=== PATIENT | female | born 1945 | race Caucasian/White ===

== ENCOUNTER 2016-07-11 02:15 | Inpatient (IN) | payer OTHER, MEDICARE ==
[~2016-07-11] VITALS: Ht 154.9 cm; Wt 63.5 kg
[~2016-07-11 02:15] MED LIST: DICLOFENAC SODI50 M3 PO; GABAPENTIN100 M2 PO; OMEPRAZOLE40 M1 PO; PERCOCET 7.5-31 EACH PO; QUINAPRIL
[2016-07-11 08:14] LABS: ABSOLUTE BASOPHIL COUNT 0 /CUMM (0.0-0.2); ABSOLUTE EOSINOPHIL COUNT 0.1 /CUMM (0.0-0.7); ABSOLUTE GRANULOCYTE CT 4.7 /CUMM (1.4-6.5); ABSOLUTE LYMPH COUNT 2.2 /CUMM (1.2-3.4); ABSOLUTE MONOCYTE COUNT 0.6 /CUMM (0.10-0.60); BASOPHIL % 0.3 % (0.0-2.0); EOSINOPHIL % 1.9 % (0-5); GRANULOCYTE % 61.5 % (42.2-75.2); HEMATOCRIT 37.1 % (37-47); MEAN CORPUSCULAR HGB CONC 32.8 G/DL (33.0-37.0); MEAN CORPUSCULAR VOLUME 85.4 FL (81.0-99.0); MEAN PLATELET VOLUME 6.6 FL (7.4-10.4); PLATELET COUNT 342 /CUMM (130-400); RBC DISTRIBUTION WIDTH 14.4 % (11.5-14.5); RED BLOOD CELL CT 4.35 /CUMM (4.20-5.40); WHITE BLOOD CELL COUNT 7.7 /CUMM (4.8-10.8)
--- NOTE | 2016-07-11 12:06 | Operative Report ---
Operative/Inv Procedure Report Surgery Date: 07/11/16 Name of Procedure: Laparoscopic converted to open incarcerated incisional hernia repair Small bowel resection Pre-Operative Diagnosis: Incarcerated incisional hernia Post-Operative Diagnosis: Same Estimated Blood Loss: scant Surgeon/Emergency Department Aide: KATELYNN WRIGHT,GEOVANNA Menendez/DARSHAN Mcmahon Anesthesia: general endotracheal tube Implants: None Specimens: Small bowel Operative Indication: 70-year-old woman presents with a chronically incarcerated port site hernia in the left lower quadrant related to prior laparoscopic port site from hysterectomy performed in December 2015. Operative/Procedure Note Note: After consent she is brought to the operating room and laid supine. Gen. anesthesia was obtained and her abdomen was prepped and draped. There was incarcerated left lower quadrant abdominal wall hernia. It is reducible after induction of general anesthesia. Skin and right upper quadrant was infiltrated local anesthesia transverse incision made sharply. We gained access to the peritoneum percutaneously using an optical 12 mm trocar. Pneumoperitoneum was achieved. 2, 5 mm ports were placed in the right lower quadrant after local anesthesia was instilled and under direct vision the camera. Despite the reducible nature of her hernia contents remained incarcerated because the small bowel was stuck into the hernia sac. We dissected the orifice of the defect. There are multiple small bowel loops that were plastered up to the sac. There densely adherent to the sac thus making the dissection quite difficult. We tried multiple different angles dissecting it. In the end it was impossible to deliver the small bowel without causing injury to it. At this point I felt that making a small incision over the defect to reduce the contents and then placed laparoscopic mesh would be a better approach. So we made a small incision over the left lower quadrant defect site. Dissected through the subcutaneous tissues tissues with cautery. Encountered the hernia sac which was then circumferentially dissected down the level of the fascia with cautery. We then able to dissect the sac free from the surrounding fascial layers. The dissection was quite difficult due to the size of the hernia sac. Eventually we able to free it up circumferentially and then opened the sac and inspected the small bowel. It appeared that during our dissection of the small bowel a bucket handle injury to this segment of mesentery along the bowel wall was created. This resulted in a small area of ischemia of the small bowel. I was concerned about the viability of this bowel and elected to resect it. Mesenteric windows were created cautery and the bowel transected with the CHAYITO stapler. The bowel was then lined up side to side with 3-0 silk sutures and the staple lines were opened to allow a [id number] anastomosis. The common enterotomy was closed with a reload of the stapler. A stitch in the crotch of the staple line was created with 3-0 silk. The bowel was then replaced in the perineal cavity. Due to the contaminated nature of the case I felt that maybe a piece of biologic mesh to be placed. I did not do an onlay so we thought may be we could place it laparoscopically. There were 2 layers of fascia we identified and attempted to create planes in between them so that we could put the mesh in between the layers in a sandwich type fashion. But the external oblique was fused medially such that that plan wouldn't work. So I elected to repair the site with primary closure. The deeper 2 layers of fascia were closed with interrupted 0 Maxon suture. The external oblique was closed in a running fashion with 0 Maxon. We then went back laparoscopic. Plan was to be due to placed some biologic mesh but the closure looked perfect, her abdominal wall was lax and Strati\paige mesh would not accommodate use of the absorbable tackers. Permanent mesh would not be garcia given the clean contaminated nature of the case. Therefore elected to not place mesh at all due to the excellent closure that was able to be performed. We therefore concluded the operation and removed the ports. The fascia in the right upper quadrant was closed with interrupted 0 Vicryl sutures. Skin incisions closed in layers of absorbable sutures. Steri-Strips and sterile dressing applied. Sponge and needle counts are correct CC: STEPHANIE WRIGHT,CAMILO Coughlin
--- NOTE | 2016-07-11 13:40 | Admission Core Measures ---
Admission Lab Results I reviewed the following labs: Laboratory Tests 07/11 0730 Chemistry Sodium (137 - 145 mmol/L) 145 Potassium (3.5 - 5.1 mmol/L) 5.4 H Chloride (98 - 107 mmol/L) 105 Carbon Dioxide (22 - 30 mmol/L) 28 Anion Gap (5 - 16) 12 BUN (7 - 17 mg/dL) 24 H Creatinine (0.5 - 1.0 mg/dL) 1.0 Estimated GFR (>60 ml/min) 55 L BUN/Creatinine Ratio (7 - 25 %) 24.0 Glucose (65 - 99 mg/dL) 102 H Calcium (8.4 - 10.2 mg/dL) 10.0 Hematology CBC w Diff NO MAN DIFF REQ WBC (4.8 - 10.8 /CUMM) 7.7 RBC (4.20 - 5.40 /CUMM) 4.35 Hgb (12.0 - 16.0 G/DL) 12.2 Hct (37 - 47 %) 37.1 MCV (81.0 - 99.0 FL) 85.4 MCH (27.0 - 31.0 PG) 28.0 RDW (11.5 - 14.5 %) 14.4 Plt Count (130 - 400 /CUMM) 342 MPV (7.4 - 10.4 FL) 6.6 L Gran % (42.2 - 75.2 %) 61.5 Lymphocytes % (20.5 - 51.1 %) 28.7 Monocytes % (1.7 - 9.3 %) 7.6 Eosinophils % (0 - 5 %) 1.9 Basophils % (0.0 - 2.0 %) 0.3 Absolute Granulocytes (1.4 - 6.5 /CUMM) 4.7 Absolute Lymphocytes (1.2 - 3.4 /CUMM) 2.2 Absolute Monocytes (0.10 - 0.60 /CUMM) 0.6 Absolute Eosinophils (0.0 - 0.7 /CUMM) 0.1 Absolute Basophils (0.0 - 0.2 /CUMM) 0 PUBS MCHC (33.0 - 37.0 G/DL) 32.8 L Admission Meds I reviewed the following Meds: Current Medications Sig/Rita Start time Last Medication Dose Stop Time Status Admin Cefazolin Sodium 2,000 MG ONCE 07/11 0000 NR (Kefzol-Ancef Inj) 07/11 3249 Gabapentin 100 MG AT BEDTIME 07/11 2200 AC (Neurontin) Lisinopril 10 MG DAILY 07/12 1000 AC (Prinivil) Acute Coronary Syndrome Inclusion Criteria ACS Diagnosis No Inpatient Core Measures LDL Reminder: If No, please order W/I first 24hr of stay Congestive Heart Failure Inclusion Criteria CHF Diagnosis No Cerebrovascular accident Inclusion Criteria CVA/TIA Diagnosis No Inpatient Core Measures Bedside Swallow Eval Reminder: If BSE failed, place ST order Antithrombotic Reminder: Order Antithrombotic Medication by end of day 2 Antithrombotic Reminder: Document Reason Antithrombotic Not ordered by end of day 2 AFIB/Flutter Reminder: If Present, add to problem list AFIB/Flutter Reminder: Order Anticoag Medication for pts with AFIB/Flutter Atherosclerosis Reminder: If Present, add to problem list LDL Reminder: If No, please order W/I first 24hr of stay PT Order Reminder: If No, please order Venous thromboembolism Inpatient Core Measures VTE Risk Factors: Age > 40, Obesity, Surgery [facility] prophylaxis d/t No contraindications No VTE Pharm Prophylaxis d/t No contraindications Inclusion Criteria - Per Current guidelines, there needs to be overlap - treatment for the first 5 days of Warfarin therapy. - Parenteral Anticoagulation (IV or SC) needs to be - given along with Warfarin therapy. VTE Diagnosis No VTE Type NONE VTE Confirmed by (Test) NONE Problem List As ranked by this Provider includes Assessment & Plan 1. S/P hernia repair 2. S/P small bowel resection HOME MEDS Home Med List Diclofenac Sodium 50 MG TABLET.DR 1 TAB PO BID PAIN (Reported) Gabapentin 100 MG CAPSULE 1 TAB PO NIGHTLY SLEEP (Reported) Omeprazole 40 MG CAPSULE.DR 1 CAP PO DAILY GERD (Reported) Oxycodone HCl/Acetaminophen (Percocet 7.5-325 MG Tablet) 7.5 MG-325 MG TABLET 1 TAB PO 4 TIMES/DAY PAIN (Reported)
--- NOTE | 2016-07-11 13:58 | PN- General Surgery ---
Subjective Subjective: POST-OP NOTE: Some left sided incisional pain. No nausea. Hasn't been out of bed yet. Due to void this afternoon. Currently without dizziness. No shortness of breath. No chest pains. Objective Vital Signs and I&Os pacu flowsheet reviewed, due to void later Physical Exam: General - alert & oriented x 3. comfortable. no acute distress. Lungs - clear bilaterally. no w/r/r. Cardiac - s1s2. reg. Abdomen - soft. no bowel sounds appreciated. dressings c/d/i. Extremities - warm bilaterally. no c/c/e. calves soft and nontender b/l. Assessment/Plan Assessment/Plan This 70 year old white female with hx chronic back pain, htn, hld, insomnia, neuropathy, gerd, is now POD#0 s/p laparoscopic converted to open incarcerated incisional hernia repair and small bowel resection for incarcerated incisional hernia ok to try clears pain control as ordered ancef x 2 post-op hep sc - dvt ppx protonix - gi ppx oob/ambulation due to void later today f/u am labs will continue to observe overnight to d/w Core Measures/Miscellaneous Venous Thromboembolism VTE Risk Factors: Age > 40, Surgery VTE Contraindications: No Contraindications VTE Diagnosis: No VTE Type: NONE VTE Confirmed by (Test): NONE Beta Ayla Is Beta Ayla a Home Med? No Antibiotics Is Patient on Antibiotics? Yes If Yes: prophylaxis
[2016-07-11 14:12] VITALS: BP 114/76
[2016-07-11 17:59] VITALS: BP 124/86
--- NOTE | 2016-07-11 18:01 | NUR ---
LATE ENTRY NSG NOTE: PATIENT ARRIVED TO FLOOR FROM PACU VIA STRETCHER ACCOMPANIED BY DISTRIBUTION; PATIENT AWAKE A/OX3; 93% ON ROOM AIR; VSS (SEE CHARTING); PATIENT STATES PAIN IS 6/10 TO ABDOMEN AND BACK; 2 BANDAID SITES TO RT SIDE AND 1 DRESSING SITE TO LT SIDE OF ABDOMEN C/D/I; IVF HUNG BY STEAM BRUSH OPERATOR AND RUNNING ON PUMP PER ORDER; ALPS ON; IST PROVIDED; PATIENT WEARING GLASSES; ORIENTED TO ROOM; CALL JOSEPH IN REACH; WILL CONT TO MONITOR;
[2016-07-11 20:05] VITALS: BP 130/70
[2016-07-11 20:10] VITALS: BP 120/72
[2016-07-11 23:12] VITALS: BP 120/60
[2016-07-12 04:00] VITALS: BP 124/70
[2016-07-12 06:39] VITALS: BP 120/76
[2016-07-12 08:43] LABS: ABSOLUTE BASOPHIL COUNT 0 /CUMM (0.0-0.2); ABSOLUTE EOSINOPHIL COUNT 0.1 /CUMM (0.0-0.7); BASOPHIL % 0.4 % (0.0-2.0); HEMATOCRIT 35.5 % (37-47)
[2016-07-12 09:24] LABS: ABSOLUTE GRANULOCYTE CT 8.7 /CUMM (1.4-6.5); ABSOLUTE LYMPH COUNT 2.4 /CUMM (1.2-3.4); ABSOLUTE MONOCYTE COUNT 0.9 /CUMM (0.10-0.60); EOSINOPHIL % 0.4 % (0-5); GRANULOCYTE % 71.9 % (42.2-75.2); MEAN CORPUSCULAR HGB CONC 32.9 G/DL (33.0-37.0); MEAN CORPUSCULAR VOLUME 85.1 FL (81.0-99.0); MEAN PLATELET VOLUME 7.6 FL (7.4-10.4); PLATELET COUNT 302 /CUMM (130-400); RBC DISTRIBUTION WIDTH 14.5 % (11.5-14.5); RED BLOOD CELL CT 4.17 /CUMM (4.20-5.40)
--- NOTE | 2016-07-12 09:28 | PN- General Surgery ---
See Addendum Subjective Subjective: 70-year-old female postop day 1 status post laparoscopic to open incisional hernia repair and small bowel resection, currently being observed for pain and return of bowel function. She has yet to have a movement or pass any flatus. She has mild to moderate pain which is controlled with by mouth narcotics. She is chronically on Percocet as well as outpatient. She denies any nausea or vomiting. She denies any fever or flulike illness. She states that after her hysterectomy she had for 5 days prior to return of bowel function and she is concerned that this will be another prolonged course for her bowel function returns. She has a normal appetite and she is tolerating clears. Objective Vital Signs and I&Os Vital Signs Date Time Temp Pulse Resp B/P B/P Pulse O2 O2 Flow FiO2 Mean Ox Delivery Rate 07/12 0639 98.1 75 18 120/76 93 Room Air 07/12 0400 97.8 72 18 124/70 98 Room Air 07/11 2312 98.0 88 20 120/60 93 Room Air 07/11 2009 98.7 79 16 120/72 94 Room Air 07/11 2004 98.2 74 18 130/70 100 Room Air 07/11 1759 98.3 86 16 124/86 95 Room Air 07/11 1724 Room Air Room Air 07/11 1523 93 Room Air 07/11 1412 97.7 79 16 114/76 93 Room Air Intake & Output 07/12 1600 07/12 0800 07/12 0000 07/11 1600 07/11 0800 07/11 0000 Intake Total 1300 1350 Output Total 500 1400 400 Balance -500 -100 950 Intake, IV 800 600 Intake, Oral 500 750 Output, Urine 500 1400 400 Patient 140 lb Weight Physical Exam: Well-developed well-nourished no apparent distress. HEENT: Atraumatic, extraocular motion intact Neck: Supple, no lymphadenopathy Respiratory: No respiratory distress Abdomen: Incisions with dressings over top, clean dry and intact Mild tenderness to the left side of the abdomen Softly distended Bowel sounds very hypoactive Extremities: No edema, no calf pain Neuro: Alert and oriented x3 . Patient up and ambulatory Psych: Mood affect normal, normal memory normal judgment. Skin: Warm and dry, no rash on exposed skin. Results Last 48 Hours of Labs: Laboratory Tests 07/12 07/11 0713 0730 Chemistry Sodium (137 - 145 mmol/L) 140 145 Potassium (3.5 - 5.1 mmol/L) 4.3 5.4 H Chloride (98 - 107 mmol/L) 105 105 Carbon Dioxide (22 - 30 mmol/L) 24 28 Anion Gap (5 - 16) 11 12 BUN (7 - 17 mg/dL) 16 24 H Creatinine (0.5 - 1.0 mg/dL) 0.8 1.0 Estimated GFR (>60 ml/min) > 60 55 L BUN/Creatinine Ratio (7 - 25 %) 20.0 24.0 Glucose (65 - 99 mg/dL) 102 H Calcium (8.4 - 10.2 mg/dL) 10.0 Hematology CBC w Diff Pending NO MAN DIFF REQ WBC (4.8 - 10.8 /CUMM) Pending 7.7 RBC (4.20 - 5.40 /CUMM) Pending 4.35 Hgb (12.0 - 16.0 G/DL) Pending 12.2 Hct (37 - 47 %) Pending 37.1 MCV (81.0 - 99.0 FL) Pending 85.4 MCH (27.0 - 31.0 PG) Pending 28.0 RDW (11.5 - 14.5 %) Pending 14.4 Plt Count (130 - 400 /CUMM) Pending 342 MPV (7.4 - 10.4 FL) Pending 6.6 L Gran % (42.2 - 75.2 %) 61.5 Lymphocytes % (20.5 - 51.1 %) 28.7 Monocytes % (1.7 - 9.3 %) 7.6 Eosinophils % (0 - 5 %) 1.9 Basophils % (0.0 - 2.0 %) 0.3 Absolute Granulocytes (1.4 - 6.5 /CUMM) 4.7 Absolute Lymphocytes (1.2 - 3.4 /CUMM) 2.2 Absolute Monocytes (0.10 - 0.60 /CUMM) 0.6 Absolute Eosinophils (0.0 - 0.7 /CUMM) 0.1 Absolute Basophils (0.0 - 0.2 /CUMM) 0 PUBS MCHC (33.0 - 37.0 G/DL) Pending 32.8 L Assessment/Plan Assessment/Plan Postoperative day 1 status post laparoscopic to open incisional hernia repair left side of abdomen with small bowel resection, currently being observed for return of bowel function. -No return of bowel function yet, continue clears -Pain medication as needed -Perioperative antibiotics completed -Out of bed ad kenney. -Labs pending this morning -hep sc - dvt ppx -protonix - gi ppx -Will discuss with Dr. Tariq Core Measures/Miscellaneous Venous Thromboembolism VTE Risk Factors: Age > 40, Surgery VTE Contraindications: No Contraindications VTE Diagnosis: No VTE Type: NONE VTE Confirmed by (Test): NONE Beta Ayla Is Beta Ayla a Home Med? No Antibiotics Is Patient on Antibiotics? Yes If Yes: prophylaxis
[2016-07-12 09:39] LABS: WHITE BLOOD CELL COUNT 12.1 /CUMM (4.8-10.8)
[2016-07-12 14:09] VITALS: BP 145/82
--- NOTE | 2016-07-12 16:48 | Patient Discharge Instructions ---
Discharge Instructions General Discharge Information You were seen/treated for: incisional hernia repair, small bowel resection You had these procedures: see above Watch for these problems: redness, swelling, pain, fever, nausea, vomiting, discharge from the wound. Do not soak the wound: Yes Daily wet to dry dressings: Yes (if needed) No bath, but you may shower: Yes Special Instructions: keep dressings on for 3 days. may remove after. apply bandaids Diet Continue normal diet: No Recommended Diet: keep on fulls diet until normal bowel function returns Activity Full Activity/No Limits: No Activity Self Limited: Yes Pounds, do NOT lift more than: 10 Acute Coronary Syndrome Inclusion Criteria At DC or during hospital stay patient has or had the following: ACS DIAGNOSIS No Discharge Core Measures Meds if any: Prescribed or Continued at Discharge Meds if any: NOT Prescribed or Continued at Discharge Congestive Heart Failure Inclusion Criteria At DC or during hospital stay patient has or had the following: CHF DIAGNOSIS No Discharge Core Measures Meds if any: Prescribed or Continued at Discharge Meds if any: NOT Prescribed or Continued at Discharge Cerebrovascular accident Inclusion Criteria At DC or during hospital stay patient has or had the following: CVA/TIA Diagnosis No Discharge Core Measures Meds if any: Prescribed or Continued at Discharge Meds if any: NOT Prescribed or Continued at Discharge Venous thromboembolism Inclusion Criteria VTE Diagnosis No VTE Type NONE VTE Confirmed by (Test) NONE Discharge Core Measures - Per Current guidelines, there needs to be overlap - treatment for the first 5 days of Warfarin therapy. - If discharged on Warfarin prior to 5 days of - overlap therapy, the patient will need to be - assessed for post discharge needs including - *Post discharge parental anticoagulation - *Warfarin and/or parental anticoagulation education - *Follow up date to check INR post discharge At least 5 days overlap therapy as Inpatient No Meds if any: Prescribed or Continued at Discharge Note: Overlap Therapy is Warfarin and Anticoagulant Meds if any: NOT Prescribed or Continued at Discharge
--- NOTE | 2016-07-18 13:45 | Surgical Discharge Summary ---
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 Spouse Services at Home: None What is Your Primary Language? Maltese Review of Systems: n ot assessed at [place] Hospital Course Course Attending Physician: GEOVANNA PAEC MD Primary Care Physician: CAMILO BROWN MD Hospital Course: admitted to hospital after laparoscoic converted to open incisional hernia repair with small bowel resection. she tolerated a diet and was sent home per her request. Allergies: Coded Allergies: No Known Allergies (07/05/16) Significant Procedures: laparoscopic converted to open incisional hernia repair with small bowel resection. no mes. Disposition Summary Disposition Principal Diagnosis: incisional hernia Additional Diagnosis: none Discharge Disposition: home or self care Discharge Instructions General Discharge Information Code Status: Full Code Patient's Diet: regular Patient's Activity: no lifting Follow-Up Instructions/Appts: two weeks. Medications at Discharge Discharge Medications: Continue taking these medications: Oxycodone HCl/Acetaminophen (Percocet 7.5-325 MG Tablet) 7.5 MG-325 MG TABLET 1 Tablet ORAL 4 TIMES A DAY Comments: Last Taken: 07/12/16 Time: 200 PM [QUINAPRIL] DAILY Comments: NOT GIVEN, LISINOPRIL GIVEN IN HOSPITAL Last Taken: 07/12/16 Time: 1000 AM Diclofenac Sodium (Diclofenac Sodium) 50 MG TABLET. 1 Tablet ORAL TWICE DAILY Comments: NOT GIVEN IN HOSPITAL Gabapentin (Gabapentin) 100 MG CAPSULE 1 Tablet ORAL NIGHTLY Omeprazole (Omeprazole) 40 MG CAPSULE.DR 1 Capsule ORAL DAILY Comments: NOT GIVEN IN HOSPITAL Copies To: CAMILO BROWN MD
== END 2016-07-12 20:18 | DRG 355 ==
LOC: STS 02:15 → PACUH 11:51 → ENRESERV 13:00 → 2NB 13:35
PROVIDERS: Nurse Practitioner; ADMIT Surgery
PROC: 0WUF0KZ Supplement Abdominal Wall with Nonautologous Tissue Substitute, Open Approach (ICD-10-PCS; principal; 2016-07-11)
PROC: 0WJF4ZZ Inspection of Abdominal Wall, Percutaneous Endoscopic Approach (ICD-10-PCS; principal; 2016-07-11)
DX: K43.0 Incisional hernia with obstruction, without gangrene (principal); I10 Essential (primary) hypertension; E78.5 Hyperlipidemia, unspecified; M19.90 Unspecified osteoarthritis, unspecified site; K21.9 Gastro-esophageal reflux disease without esophagitis
CPT/HCPCS: 2NBSP; 36415; 82436; 88307; 93005; 93010; J0131; J0690; J1644; J2405; J2550; J7042

== ENCOUNTER 2017-05-30 09:18 | Inpatient (IN) | payer OTHER, MEDICARE ==
[~2017-05-30] VITALS: Ht 154.9 cm; Wt 68.0 kg
--- NOTE | 2017-05-30 09:44 | ED GENERAL ADULT ---
History of Present Illness General Chief Complaint: General Adult Stated Complaint: SIB DR. BROWN FOR ANEMIA Source: patient, old records Exam Limitations: no limitations Vital Signs & Intake/Output Vital Signs & Intake/Output Vital Signs Date Time Temp Pulse Resp B/P B/P Pulse O2 O2 Flow FiO2 Mean Ox Delivery Rate 05/30 1112 97.4 76 20 111/55 97 Room Air 05/30 0924 97.8 93 15 111/67 94 Room Air Room Air Allergies Coded Allergies: No Known Allergies (05/30/17) Reconcile Medications Diclofenac Sodium 50 MG TABLET.DR 1 TAB PO BID PAIN (Reported) Gabapentin 100 MG CAPSULE 1 TAB PO NIGHTLY SLEEP (Reported) Omeprazole 40 MG CAPSULE.DR 1 CAP PO DAILY GERD (Reported) Oxycodone HCl/Acetaminophen (Percocet 7.5-325 MG Tablet) 7.5 MG-325 MG TABLET 1 TAB PO 4 TIMES/DAY PAIN (Reported) [QUINAPRIL] HTN (Reported) Triage Note: PT SENT TO ED BY DR. BROWN FOR ANEMIA, HIGH WBC, ACUTE RENAL FAILURE, THROMBOCYTOSIS. PT HAD BLOOD WORK DONE YESTERDAY. PT DOES HAVE HISTORY OF UTERINE CANCER BUT "THEY GOT RID OF IT." PT FEELS TIRED, SOB WITH EXERTION. DENIES CHEST PAIN. Triage Nurses Notes Reviewed? yes HPI: The patient is 71-year-old female with past medical history of hypertension, hiatal hernia, GERD and uterine cancer status post hysterectomy without lymph node removal on 01/03/2016, radiation (03/02, 03/07, 03/14/16) and estradiol, Prometrium last dose on 12/31/15. The patient is being sent in by PCP on 05/30 secondary to abnormal lab findings on blood work done on 05/29 at PCP's clinic. The patient reports shortness of breath ongoing for past 1 month. She gets short of breath going up and down the stairs and slight exertion. She reports fatigue also ongoing for past 1 month. She denies any chest pain, palpitation, lightheadedness, dizziness, headaches. Patient has been having chronic abdominal pain past 2 years since her hysterectomy. She reports 10 out of 10 with stomach pain associated with eating , cannot eat half of a sandwich without experiencing pain. She reports having multiple episodes of diarrhea for 2 days 1 week ago. She denies noticing any blood in her stool. She reports having GERD for several years. She has poor oral intake, bloating, does not have pain with fluid intake, no stool incontinence, denies smoking, alcohol and use. Of note patient has been consuming 100 mg of diclofenac to 5 tablets per day for her ankle pain. As per patient she had an episode of hematuria lasting for several day's in March 2017. Patient has been evaluated by Dr. Valverde skin lifter bacon in 03/2017. She had endoscopy and colonoscopy done with following results Endoscopy findings 1. Grossly normal esophagus and GE junction. 2. Grossly normal gastric mucosa status post random biopsies. 3. Incidental duodenal diverticulum. Clonoscopy findings 1. Nonspecific patchy colitis throughout the colon status post biopsies and spot tattoo injection of the distal areas of inflammation. 2. Sigmoid diverticulosis. 3. Small internal hemorrhoids. Guaiac done in ED negative however stool sample was inadequate I spoke to Dr. Jeter skin lifter bacon sales donor recruitment representative, he suggested blood transfusion for the symptomatic anemia, GI-garcia there is no acute intervention indicated at this time. Patient has been having abdominal pain likely secondary to colitis that would warrant treatment. Hematology consult placed (Rosangela Baron MD) Past History Travel History Traveled to [place] past 21 day No Medical History Any Pertinent Medical History? 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 No (Rosangela Baron MD) Review of Systems Review of Systems Constitutional: Reports: see HPI. EENTM: Reports: no symptoms. Respiratory: Reports: short of breath. Cardiovascular: Denies: chest pain, orthopena, palpitations. GI: Reports: abdominal pain. Genitourinary: Reports: no symptoms. (Rosangela Baron MD) Review of Systems Musculoskeletal: Reports: no symptoms. Skin: Reports: no symptoms. Neurological/Psychological: Reports: no symptoms. Hematologic/Endocrine: Reports: no symptoms. Immunologic/Allergic: Reports: no symptoms. All Other Systems: Reviewed and Negative (Abel WRIGHT,Shukri Solis) Physical Exam Physical Exam General Appearance: well developed/nourished, no apparent distress Head: atraumatic Eyes: Bilateral: normal appearance. Ears, Nose, Throat: normal pharynx Neck: supple Respiratory: normal breath sounds, chest non-tender, no respiratory distress Cardiovascular: regular rate/rhythm Gastrointestinal: normal bowel sounds, soft, non-tender, distention Rectal: heme negative stool Back: normal inspection Extremities: normal inspection, no edema Neurologic/Psych: awake, alert, oriented x 3 Core Measures ACS in differential dx? No CVA/TIA Diagnosis: No Sepsis Present: No Sepsis Focused Exam Completed? No (Rosangela Baron MD) Physical Exam Skin: PALE (Abel WRIGHT,Shukri Solis) Progress Differential Diagnoses I considered the following diagnoses in my evaluation of the patient: Following condition warrant inpatient treatment -Symptomatic anemia, H/H7.5/23.7 worseing to 7.2/23 requiring blood transfusion; anemia workup ordered, Hx of NSAID use, would likely benefit from IV iron supplementation -Leukocytosis can be secondary to colitis -Thrombocytosis likely etiologies reactive versus GI causes versus bone marrow. >1000 most indicative of primary bone marrow process, of note pt has hx of utrine Cancer -LORENZO likely secondary to NSAID, IVF and avoid nephrotoxins -Hyperkalemia in setting of LORENZO, no EKG changes-- resolved on today's labs Initial ED EKG: NSR, no ST T wave changes (Rosangela Baron MD) Differential Diagnoses I considered the following diagnoses in my evaluation of the patient: Plan of Care: Orders Procedure Date/time Status Heart Healthy Diet 05/30 D Active BLOOD PRODUCT PICKUP 05/30 1300 Active Patient Data 05/30 1221 Active ED Holding Orders 05/30 1216 Active Admit to inpatient 05/30 1216 Active Vital Signs 05/30 1216 Active Code Status 05/30 1216 Active Intake & Output 05/30 1126 Active LEUKOCYTE POOR (PACKED CELLS) 05/30 1106 Active TOTAL IRON BINDING CAPACITY 05/30 1051 Complete FOLIC ACID 05/30 1051 Complete FERRITIN 05/30 1051 Complete SERUM IRON 05/30 1051 Complete VITAMIN B12 05/30 1051 Complete TYPE & SCREEN (NOT X-MATCH) 05/30 1039 Active TROPONIN LEVEL 05/30 1026 Complete MAGNESIUM 05/30 1026 Complete CBC WITHOUT DIFFERENTIAL 05/30 1026 Complete CALCIUM 05/30 1026 Complete BASIC ELECTROLYTES PLUS BUN&CR 05/30 1026 Complete EKG 05/30 1026 Active Laboratory Tests 05/30/17 1051: Anion Gap 15, Estimated GFR 23 L, BUN/Creatinine Ratio 21.0, Calcium 9.2, Magnesium 2.0, Iron 18 L, TIBC 269, Ferritin 24.9, Troponin I < 0.01, Vitamin B12 > 1000 H, Folate 7.9, CBC w Diff MAN DIFF ORDERED, RBC 3.11 L, MCV 73.8 L , MCH 23.1 L, MCHC 31.4 L, RDW 18.2 H, MPV 5.9 L, Gran % 75.9 H, Lymphocytes % 13.8 L, Monocytes % 5.6, Eosinophils % 4.4, Basophils % 0.3, Absolute Granulocytes 12.4 H, Absolute Lymphocytes 2.2, Absolute Monocytes 0.9 H, Absolute Eosinophils 0.7, Absolute Basophils 0.1, Platelet Estimate INCREASED , Polychromasia 1+, Hypochromic-Microcytic 2+, Anisocytosis 1+, Microcytic Cells 1+ 05/30/17 1028: Iron Cancelled, TIBC Cancelled, Ferritin Cancelled, Vitamin B12 Cancelled, Folate Cancelled (Abel WRIGHT,Shukri Solis) Departure Departure Disposition: STILL A PATIENT Condition: Stable Clinical Impression Primary Impression: Thrombocytosis Secondary Impressions: Anemia Qualifiers: Anemia type: unspecified type Qualified Code: D64.9 - Anemia, unspecified Referrals: Aide WRIGHT,Wily Coughlin (PCP/Family) Departure Forms: Customer Survey General Discharge Information (Tod WRIGHT,Rosangela) Admission Note Spoke With: Patrick WRIGHT,Kirstie Documentation of Exam: Documentation of any treatments & extenuating circumstances including Concerns Regarding Discharge (functional status, medication knowledge or non-compliance, living conditions, etc.) that warrant an admission rather than observation: [PT TO BE ADMITTED FOR TRANSFUSION, GI CONSULTATION, HEMATOLOGY CONSULTATION, IV IRON] Resident Co-Sign Statement Statement: ED Attending supervision documentation- [X] I saw and evaluated the patient. I have also reviewed all the pertinent lab results and diagnostic results. I agree with the findings and the plan of care as documented in the Resident's documentation. [X] I have reviewed the ED Record and agree with the Resident's documentation. [] Additions or exceptions (if any) to the Resident's note and plan are summarized below: [] (Abel WRIGHT,Shukri Solis) Critical Care Note Critical Care Note Critical Care Time: non-applicable (Tod WRIGHT,Rosangela)
[2017-05-30 11:02] LABS: ABSOLUTE BASOPHIL COUNT 0.1 /CUMM (0.0-0.2); ABSOLUTE EOSINOPHIL COUNT 0.7 /CUMM (0.0-0.7); ABSOLUTE GRANULOCYTE CT 12.4 /CUMM (1.4-6.5); ABSOLUTE LYMPH COUNT 2.2 /CUMM (1.2-3.4); ABSOLUTE MONOCYTE COUNT 0.9 /CUMM (0.10-0.60); BASOPHIL % 0.3 % (0.0-2.0); EOSINOPHIL % 4.4 % (0-5); GRANULOCYTE % 75.9 % (42.2-75.2); MEAN CORPUSCULAR HGB 23.1 PG (27.0-31.0); MEAN CORPUSCULAR HGB CONC 31.4 G/DL (33.0-37.0); MEAN CORPUSCULAR VOLUME 73.8 FL (81.0-99.0); MEAN PLATELET VOLUME 5.9 FL (7.4-10.4); RBC DISTRIBUTION WIDTH 18.2 % (11.5-14.5); RED BLOOD CELL CT 3.11 /CUMM (4.20-5.40); WHITE BLOOD CELL COUNT 16.3 /CUMM (4.8-10.8)
[2017-05-30 11:44] LABS: PLATELET COUNT 1058 /CUMM (130-400)
--- NOTE | 2017-05-30 13:42 | History & Physical ---
Jeramy WRIGHT,[facility] 05/30/17 1341: General Information and HPI MD Statement: I have seen and personally examined RENAY JACOBSON and documented this H&P. The patient is a 71 year old F who presented with a patient stated chief complaint of [dizziness, shortness breath, and fatigue]. Source of Information: patient, family, old records Exam Limitations: no limitations History of Present Illness: 71-year-old female with PMH of HTN, GERD, nakul horse leg cramps, uterine cancer s/p radical hysterectomy in 12/2015 followed by radiation and chemotherapy therapy 03/02, who was sent by her PCP after she was found to have microcytic anemia, leukocytosis, thrombocytosis, and LORENZO. The patient visited PCP for one month history of exertional dyspnea, mild dizziness and fatigue. The previous lab result was the reason why she was sent to us. Patient reported 2 years history of intermittent, colicky, diffuse, nonradiating post prandial abdominal pain, the pain usually start 40 minutes to 1 hour after food and last for 2-3 hours. She believes that her pain started immediately after the hysterectomy and became more frequent after hernia repair in August 2016. She denies nausea, fever, chills, or vomiting. She reported GERD symptom for which she is taking omeprazole daily and Nexium as needed. She was seen by Dr. Valverde for the previous mentioned complaint, endoscopy and colonoscopy was done, which revealed nonspecific patchy colitis. She was started recently on mesalamine for possible ulcerative colitis. 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 EENTM: Denies: visual changes, hearing changes. Cardiovascular: Denies: chest pain, edema, orthopena, palpitations, peripheral edema, syncope. Respiratory: Reports: short of breath. Denies: cough, hemoptysis, orthopnea, sputum production, stridor, wheezing. GI: Reports: abdominal pain. Denies: constipation, diarrhea, distention, melena, nausea, bloody stool, vomiting. Genitourinary: Denies: dysuria, hematuria. Musculoskeletal: Reports: muscle pain (left leg). Skin: Denies: erythema, jaundice. Neurological/Psychological: Denies: confusion, depressed, headache. Hematologic/Endocrine: Denies: bleeding. Exam & Diagnostic Data Last 24 Hrs of Vital Signs/I&O Vital Signs Date Time Temp Pulse Resp B/P B/P Pulse O2 O2 Flow FiO2 Mean Ox Delivery Rate 05/30 1412 98.4 95 20 142/74 100 Room Air 05/30 1330 98.6 79 18 119/60 98 Room Air 05/30 1315 98.3 83 16 116/56 99 Room Air 05/30 1112 97.4 76 20 111/55 97 Room Air 05/30 0924 97.8 93 15 111/67 94 Room Air Room Air Intake & Output 05/30 1600 05/30 0800 05/30 0000 Intake Total 830 Output Total Balance 830 Intake, Blood 350 Product Intake, Oral 480 Patient 68.039 kg Weight Weight Reported by Patient Measurement Method Physical Exam General Appearance Alert, Oriented X3, Cooperative, No Acute Distress Skin No Rashes, No Breakdown HEENT Atraumatic, PERRLA, EOMI, Dry Neck No JVD Cardiovascular Regular Rate, Normal S1, Normal S2, No Murmurs Lungs Clear to Auscultation, Normal Air Movement Abdomen Normal Bowel Sounds, Soft, epigastric tenderness Neurological Normal Speech Extremities No Clubbing, No Cyanosis, No Edema, Normal Pulses Rectal negative guaiac test Last 24 Hrs of Labs/Tom: Laboratory Tests 05/30/17 1051: Anion Gap 15, Estimated GFR 23 L, BUN/Creatinine Ratio 21.0, Calcium 9.2, Magnesium 2.0, Iron 18 L, TIBC 269, Ferritin 24.9, Total Bilirubin 0.6, Direct Bilirubin 0.6 H, AST 15, ALT 21, Alkaline Phosphatase 110, Lactate Dehydrogenase 372, Troponin I < 0.01, Total Protein 6.3, Albumin 3.2 L, Vitamin B12 > 1000 H, Folate 7.9, CBC w Diff MAN DIFF ORDERED, RBC 3.11 L, MCV 73.8 L , MCH 23.1 L, MCHC 31.4 L, RDW 18.2 H, MPV 5.9 L, Gran % 75.9 H, Lymphocytes % 13.8 L, Monocytes % 5.6, Eosinophils % 4.4, Basophils % 0.3, Absolute Granulocytes 12.4 H, Absolute Lymphocytes 2.2, Absolute Monocytes 0.9 H, Absolute Eosinophils 0.7, Absolute Basophils 0.1, Platelet Estimate INCREASED , Polychromasia 1+, Hypochromic-Microcytic 2+, Anisocytosis 1+, Microcytic Cells 1+ 05/30/17 1028: Iron Cancelled, TIBC Cancelled, Ferritin Cancelled, Vitamin B12 Cancelled, Folate Cancelled Diagnostic Data EKG Results Normal sinus rhythm Assessment/Plan Assessment: 71-year-old female with past medical history of GERD, hypertension, chronic postprandial abdominal pain that started after hysterectomy secondary to uterine cancer. The patient was seen by GI as an outpatient and she was given the diagnosis of ulcerative colitis and started and mesalamine. The patient was seen by PCP yesterday for complaint of exertional shortness breath and fatigue, labs revealed hemoglobin of 7 down from 11 last time checked, thrombocytosis, leukocytosis, LORENZO, and iron deficiency for which she was send to [place] ED. Assessment #Postprandial Abdominal pain The pain usually starts 40 minutes after diet and resolved within 2-4 hours. She had recent upper endoscopy that did not relieve any abnormality and colonoscopy that showed patchy colitis. She was diagnosed with ulcerative colitis and she was started on mesalamine, however postprandial abdominal pain can't be fully explained by the ulcerative colitis, the pain may be secondary to chronic mesenteric ischemia possibly due to compromised blood supply post abdominal surgery. It's also possible that her current microcystic anemia exacerbates the pain. * We will keep patient on clear liquid * We will continue mesalamine * We will continue omeprazole 40 mg daily * We will correct anemia * We will consider CT abdomen and pelvis with contrast to assess the integrity of mesentery blood supply. * We will consult GI #Microcytic anemia without identifiable source of bleeding, leukocytosis, and thrombocytosis Microcytic anemia with a hemoglobin of 7 down from 11 last time checked, she is complaining of symptom of anemia. Guaiac negative. She denies any gross hematuria or blood in stool. She was also found to have leukocytosis and thrombocytosis both of which point towards a possible underlying undiagnosed hematology condition. Both leukocytosis and thrombocytosis can be a reactive to acute illness, however we will consult hematology to rule out any other possible explanation. * We will send for LDH and bilirubin to rule out, hemolysis * We will look at peripheral blood smear * Patient will be transfused with 2 packs of RBCs * CBC posttransfusion and every 12 hours with her after. #LORENZO Most likely multifactorial secondary to anemia, hydrochlorothiazide, and diclofenac. * We will DC all nephrotoxic * We will start IV fluids after blood transfusion * We will send for urine electrolytes and osmolarity, however patient is in hydrochlorothiazide. * We'll repeat renal function tomorrow morning * If no improvement we consider renal ultrasound Full code Clear liquid DVT prophylaxis with Alps only given a possibility of bleeding As Ranked By This Provider Problem List: 1. Incarcerated incisional hernia 2. Thrombocytosis 3. Anemia Qualifiers Anemia type: unspecified type Qualified Code: D64.9 - Anemia, unspecified 4. LORENZO (acute kidney injury) Core Measures/Misc (12/02) Acute Coronary Syndrome ACS Diagnosis: No Congestive Heart Failure Congestive Heart Failure Diagnosis No Cerebrovascular Accident CVA/TIA Diagnosis: No VTE (View Protocol) VTE Risk Factors Age>40 No Mechanical VTE Prophylaxis d/t N/A MechProphylax Ordered No VTE Pharm Prophylaxis d/t Bleeding (Active) (possible) Sepsis (View protocol) Sepsis Present: No Patrick WRIGHT,Kirstie 05/30/17 1441: General Information and HPI Allergies/Medications Home Med list Acetaminophen (Tylenol Extra Strength) 500 MG TABLET 1 TAB PO TID PRN pain ( Reported) Esomeprazole Magnesium (Nexium) 20 MG CAPSULE.DR 1 CAP PO DAILY PRN GERD ( Reported) Fexofenadine HCl (Celina Allergy) 180 MG TABLET 1 TAB PO DAILY sesonal allergy (Reported) Gabapentin (Neurontin) 800 MG TABLET 1 TAB PO TID for sleep (Reported) Hydrochlorothiazide 25 MG TABLET 1 TAB PO DAILY HTN (Reported) Lubiprostone (Amitiza) 8 MCG CAPSULE 1 CAP PO BID PRN GERD (Reported) Mesalamine (Lialda) 1.2 GRAM TABLET. 2 TAB PO DAILY UC (Reported) Omeprazole 40 MG CAPSULE.DR 1 CAP PO DAILY GERD (Reported) Oxycodone HCl/Acetaminophen (Percocet 7.5-325 MG Tablet) 7.5 MG-325 MG TABLET 1 TAB PO 4 TIMES/DAY PAIN (Reported) Pyridoxine HCl (Vitamin B-6) 50 MG TABLET 4 TAB PO DAILY supplement (Reported ) Venlafaxine HCl (Effexor XR) 37.5 MG CAP.ER.24H 1 CAP PO DAILY hot/cold sweats (Reported) Attending MD Review Statement Attending Statement Attending MD Statement: examined this patient, discuss w/resident/PA/NIGHT WORKER, agreed w/resident/PA/NIGHT WORKER, reviewed EMR data (avail), discussed with nursing, amended to note Attending Assessment/Plan: 71-year-old female with past medical history significant for hypertension, uterine cancer status post hysterectomy and radiation therapy last year, history of colitis possibly UC who was sent in by her primary care doctor secondary to abnormal blood work. Patient claims that since after her hysterectomy, she has this off-and-on abdominal pain. She describes the pain as generalized but more so in the lower abdomen. Lately it is mostly postprandial. She cannot even eat half a sandwich because after she eats she develops abdominal pain 15-30 minutes later. It lasts for 2-3 hours and then it subsides. Liquids do not bother. Over the past few weeks patient felt somewhat dizzy and had dyspnea on exertion. Her primary care doctor perform the blood work which found that she was profoundly anemic. She was also found to have acute renal failure. She does admit to drinking plenty of fluids. She is on hydrochlorthiazide and she she was taking diclofenac for arthritis pain. Vital Signs Date Time Temp Pulse Resp B/P B/P Pulse O2 O2 Flow FiO2 Mean Ox Delivery Rate 05/30 1412 98.4 95 20 142/74 100 Room Air 05/30 1330 98.6 79 18 119/60 98 Room Air 05/30 1315 98.3 83 16 116/56 99 Room Air 05/30 1112 97.4 76 20 111/55 97 Room Air 05/30 0924 97.8 93 15 111/67 94 Room Air Room Air on exam; aox3, nad. cv; s1,s2, rrr resp; clear abd; soft, nt, bs+ ext; no edema. Laboratory Tests 05/30 05/30 1051 1028 Chemistry Sodium (137 - 145 mmol/L) 140 Potassium (3.5 - 5.1 mmol/L) 4.7 Chloride (98 - 107 mmol/L) 105 Carbon Dioxide (22 - 30 mmol/L) 19 L Anion Gap (5 - 16) 15 BUN (7 - 17 mg/dL) 44 H Creatinine (0.5 - 1.0 mg/dL) 2.1 H Estimated GFR (>60 ml/min) 23 L BUN/Creatinine Ratio (7 - 25 %) 21.0 Calcium (8.4 - 10.2 mg/dL) 9.2 Magnesium (1.6 - 2.3 mg/dL) 2.0 Iron (37 - 170 ug/dL) 18 L Cancelled TIBC (265 - 497 ug/dL) 269 Cancelled Ferritin (11.1 - 264 ng/mL) 24.9 Cancelled Troponin I (< 0.11 ng/ml) < 0.01 Vitamin B12 (239 - 931 pg/mL) > 1000 H Cancelled Folate (2.76 - 20.0 ng/mL) 7.9 Cancelled Hematology CBC w Diff MAN DIFF ORDERED WBC (4.8 - 10.8 /CUMM) 16.3 H RBC (4.20 - 5.40 /CUMM) 3.11 L Hgb (12.0 - 16.0 G/DL) 7.2 *L Hct (37 - 47 %) 23.0 L MCV (81.0 - 99.0 FL) 73.8 L MCH (27.0 - 31.0 PG) 23.1 L MCHC (33.0 - 37.0 G/DL) 31.4 L RDW (11.5 - 14.5 %) 18.2 H Plt Count (130 - 400 /CUMM) 1058 *H MPV (7.4 - 10.4 FL) 5.9 L Gran % (42.2 - 75.2 %) 75.9 H Lymphocytes % (20.5 - 51.1 %) 13.8 L Monocytes % (1.7 - 9.3 %) 5.6 Eosinophils % (0 - 5 %) 4.4 Basophils % (0.0 - 2.0 %) 0.3 Absolute Granulocytes (1.4 - 6.5 /CUMM) 12.4 H Absolute Lymphocytes (1.2 - 3.4 /CUMM) 2.2 Absolute Monocytes (0.10 - 0.60 /CUMM) 0.9 H Absolute Eosinophils (0.0 - 0.7 /CUMM) 0.7 Absolute Basophils (0.0 - 0.2 /CUMM) 0.1 Platelet Estimate (ADEQUATE) INCREASED Polychromasia 1+ Hypochromic-Microcytic 2+ Anisocytosis 1+ Microcytic Cells 1+ A/P; 71-year-old female with past medical history significant for hypertension, uterine cancer status post hysterectomy and radiation therapy last year, questionable history of colitis admitted with acute on chronic anemia which is microcytic, patient was reported to have guaiac-negative stool in the emergency room. Patient also has significant thrombocytosis, acute renal failure. Patient had recent endoscopy and colonoscopy which was consistent with some gastric inflammation and colitis. She has been diagnosed with ulcerative colitis and has been started on mesalamine. Patient admitted to medicine. Currently getting RBC transfusion. We'll monitor the H&H. GI will be consulted. There is documented history of ulcerative colitis but with patient's history there is some concern for possible microscopic ischemic colitis or intestinal angina. We need to discuss this with GI. Patient cannot have any CTA of the abdomen and secondary renal failure at present. Please take a look at the peripheral smear, check LDH, check urine studies. We'll hold off her diclofenac and hydrocodone thiazide for now. If renal function does not improve then will consider performing renal ultrasound and nephrology consult. We'll also consult hematology oncology. Will avoid any nephrotoxic medications. Will continue PPI and Meselamine. DVT prophylaxis: ALPS. Full code.
[2017-05-30 14:12] VITALS: BP 142/74
[2017-05-30] MEDS ORDERED: HYDROCHLOROTHIA25 M1 PO (15:25)
[2017-05-30] MEDS ORDERED: EFFEXOR XR37.5 M1 PO (15:29)
[2017-05-30] MEDS ORDERED: TYLENOL EXTRA500 M2 PO (15:30)
[2017-05-30] MEDS ORDERED: NEXIUM20 M1 PO (15:31)
[2017-05-30] MEDS ORDERED: AMITIZA8 MC1 PO (15:32)
[2017-05-30] MEDS ORDERED: NEURONTIN800 M2 PO (15:48)
[2017-05-30] MEDS ORDERED: VITAMIN B-650 M2 PO (15:50)
[2017-05-30] MEDS ORDERED: LIALDA1.2 G1 PO (15:51)
[2017-05-30] MEDS ORDERED: ALLEGRA ALLERG180 M1 PO (15:51)
--- NOTE | 2017-05-30 19:45 | Cons- Gastroenterology ---
General Information and HPI Consulting Request Date of Consult: 05/30/17 (MD NOY/GASTROENTEROLOGY) Requested By: Patrick WRIGHT,Kirstie Reason for Consult: Severe anemia Source of Information: patient, old records History of Present Illness: The patient has had approximately 2 years of postprandial periumbilical pain, beginning 5-15 minutes after meals and lasting for up to 2 hours. She has been evaluated by Dr. Valverde, including, on April 09, EGD (normal) and colonoscopy ( sigmoid diverticulosis;l "patchy" colitis, biopsy proven as either acute or chronic in separate areas, and started on mesalamine 2 days ago). She has been maintained on Nexium for GERD, although she does have breakthrough heartburn and regurgitation. Recently the patient has had fatigue and shortness of breath on exertion. She was found to be anemic by her PCP and sent to the ED for admission. She she was also noted to have leukocytosis, and thrombocytosis (over 1 million), and acute kidney injury. Her bowel movements have been variable, including some constipation, but mostly soft and without true diarrhea. She has noted no blood per rectum or melena. There has been no nausea or vomiting. Allergies/Medications Allergies: Coded Allergies: amitriptyline (FLUSHING 05/30/17) methylprednisolone (FLUSHING 05/30/17) neomycin (FLUSHING 05/30/17) trazodone (FLUSHING 05/30/17) Home Med List: Acetaminophen (Tylenol Extra Strength) 500 MG TABLET 1 TAB PO TID PRN pain ( Reported) Esomeprazole Magnesium (Nexium) 20 MG CAPSULE.DR 1 CAP PO DAILY PRN GERD ( Reported) Fexofenadine HCl (Celina Allergy) 180 MG TABLET 1 TAB PO DAILY sesonal allergy (Reported) Gabapentin (Neurontin) 800 MG TABLET 1 TAB PO TID for sleep (Reported) Hydrochlorothiazide 25 MG TABLET 1 TAB PO DAILY HTN (Reported) Lubiprostone (Amitiza) 8 MCG CAPSULE 1 CAP PO BID PRN GERD (Reported) Mesalamine (Lialda) 1.2 GRAM TABLET.DR 2 TAB PO DAILY UC (Reported) Omeprazole 40 MG CAPSULE.DR 1 CAP PO DAILY GERD (Reported) Oxycodone HCl/Acetaminophen (Percocet 7.5-325 MG Tablet) 7.5 MG-325 MG TABLET 1 TAB PO 4 TIMES/DAY PAIN (Reported) Pyridoxine HCl (Vitamin B-6) 50 MG TABLET 4 TAB PO DAILY supplement (Reported ) Venlafaxine HCl (Effexor XR) 37.5 MG CAP.ER.24H 1 CAP PO DAILY hot/cold sweats (Reported) Current Medications: Current Medications Sig/Rita Start time Last Medication Dose Route Stop Time Status Admin Gabapentin 800 MG AT BEDTIME 05/30 2199 AC PO Mesalamine 1,200 MG BID 05/30 2200 AC PO Omeprazole 40 MG DAILY AC 05/31 0700 AC PO Oxycodone/ 2 TAB Q4P PRN 05/30 1600 AC 05/30 Acetaminophen PO 1614 Pyridoxine HCl 200 MG DAILY 05/31 1000 DC PO Pyridoxine HCl 200 MG DAILY 05/31 1000 AC PO Past History Travel History Traveled to [place] past 21 day No Medical History Blood Transfusion Hx: No Neurological: NONE EENT: NONE Cardiovascular: hypertension Respiratory: NONE Gastrointestinal: GERD, ULCERATIVE COLITIS Hepatic: NONE Renal: NONE Musculoskeletal: ARTHRITIS Psychiatric: NONE Endocrine: NONE Blood Disorders: NONE Cancer(s): 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 Home Services at Home: None Smoking Status: Never Smoked ETOH Use: denies use Illicit Drug Use: denies illicit drug use Review of Systems Review of Systems Constitutional: Denies: fever, unexplained weight loss. EENTM: Denies: icterus, epistaxis. Cardiovascular: Denies: chest pain, syncope. Respiratory: Reports: short of breath. Denies: cough. GI: Reports: see HPI. Genitourinary: Reports: hematuria (history of hematuria). Denies: dysuria. Musculoskeletal: Denies: muscle stiffness, neck pain. Skin: Denies: jaundice, lesions. Neurological/Psychological: Denies: cognitive dysfunction, headache. Hematologic/Endocrine: Denies: bruising, bleeding. Exam & Diagnostic Data Vital Signs and I&O Vital Signs Date Time Temp Pulse Resp B/P B/P Pulse O2 O2 Flow FiO2 Mean Ox Delivery Rate 05/30 1412 98.4 95 20 142/74 100 Room Air 05/30 1330 98.6 79 18 119/60 98 Room Air 05/30 1315 98.3 83 16 116/56 99 Room Air 05/30 1112 97.4 76 20 111/55 97 Room Air 05/30 0924 97.8 93 15 111/67 94 Room Air Room Air Intake & Output 05/30 0400 05/29 0400 05/28 0400 Intake Total 830 Output Total Balance 830 Intake, Blood 350 Product Intake, Oral 480 Patient 150 lb Weight Weight Reported by Patient Measurement Method Physical Exam: Well-developed well-nourished, distress. Alert and oriented with normal cognition. Skin without lesion, rash or jaundice. Sclera anicteric. Oropharynx normal. Neck supple without thyromegaly or mass. No adenopathy. Heart regular rhythm. Lungs clear. Abdomen obese, soft, nondistended; normal bowel sounds, no bruit; no tenderness or mass. Extremities without clubbing, cyanosis or edema. Results Pertinent Lab Results: Laboratory Tests 05/30 05/30 05/30 1618 1051 1028 Chemistry Sodium (137 - 145 mmol/L) 140 Potassium (3.5 - 5.1 mmol/L) 4.7 Chloride (98 - 107 mmol/L) 105 Carbon Dioxide (22 - 30 mmol/L) 19 L Anion Gap (5 - 16) 15 BUN (7 - 17 mg/dL) 44 H Creatinine (0.5 - 1.0 mg/dL) 2.1 H Estimated GFR (>60 ml/min) 23 L BUN/Creatinine Ratio (7 - 25 %) 21.0 Calcium (8.4 - 10.2 mg/dL) 9.2 Magnesium (1.6 - 2.3 mg/dL) 2.0 Iron (37 - 170 ug/dL) 18 L Cancelled TIBC (265 - 497 ug/dL) 269 Cancelled Ferritin (11.1 - 264 ng/mL) 24.9 Cancelled Total Bilirubin (0.2 - 1.3 mg/dL) 0.6 Direct Bilirubin (< 0.4 mg/dL) 0.6 H AST (14 - 36 U/L) 15 ALT (9 - 52 U/L) 21 Alkaline Phosphatase (<127 U/L) 110 Lactate Dehydrogenase (313 - 618 U/L) 372 Troponin I (< 0.11 ng/ml) < 0.01 Total Protein (6.3 - 8.2 g/dL) 6.3 Albumin (3.5 - 5.0 g/dL) 3.2 L Vitamin B12 (239 - 931 pg/mL) > 1000 H Cancelled Folate (2.76 - 20.0 ng/mL) 7.9 Cancelled Hematology CBC w Diff MAN DIFF ORDERED WBC (4.8 - 10.8 /CUMM) 16.3 H RBC (4.20 - 5.40 /CUMM) 3.11 L Hgb (12.0 - 16.0 G/DL) 7.2 *L Hct (37 - 47 %) 23.0 L MCV (81.0 - 99.0 FL) 73.8 L MCH (27.0 - 31.0 PG) 23.1 L MCHC (33.0 - 37.0 G/DL) 31.4 L RDW (11.5 - 14.5 %) 18.2 H Plt Count (130 - 400 /CUMM) 1058 *H MPV (7.4 - 10.4 FL) 5.9 L Gran % (42.2 - 75.2 %) 75.9 H Lymphocytes % (20.5 - 51.1 %) 13.8 L Monocytes % (1.7 - 9.3 %) 5.6 Eosinophils % (0 - 5 %) 4.4 Basophils % (0.0 - 2.0 %) 0.3 Absolute Granulocytes (1.4 - 6.5 /CUMM) 12.4 H Absolute Lymphocytes (1.2 - 3.4 /CUMM) 2.2 Absolute Monocytes (0.10 - 0.60 /CUMM) 0.9 H Absolute Eosinophils (0.0 - 0.7 /CUMM) 0.7 Absolute Basophils (0.0 - 0.2 /CUMM) 0.1 Platelet Estimate (ADEQUATE) INCREASED Polychromasia 1+ Hypochromic-Microcytic 2+ Anisocytosis 1+ Microcytic Cells 1+ Urines Urine Osmolality (300 - 1000 MOSM/KG) 287 L Ur Random Creatinine (mg/dL) 22.8 Ur Random Sodium (30 - 90 mmol/L) 78 Ur Random Potassium (mmol/L) 15.5 Fraction Sodium Excret (<1% %) 5.1 H Assessment/Plan Assessment/Recommendations: 1. Microcytic/iron deficiency anemia. Patient has had biopsy-proven mild to moderate colitis, and also has been taking diclofenac a regular daily basis for back pain. The anemia is likely secondary to erosive gastroenteropathy and/or colitis. 2. Postprandial abdominal pain, chronic. Rule out ischemic, obstructive, his motility, etc. 3. Chronic colitis, possibly IBD. This is in the midst of evaluation and therapy by Dr. Valverde. 4. GERD, symptomatic. No erosive esophagitis on recent EGD. 5.. Acute kidney injury, likely secondary to NSAIDs, dehydration, etc. 6. Thrombocytosis. The value of greater than 1 million is unusual for a reactive process. Recommendations * Transfuse to achieve hemoglobin of greater than 8 * Follow-up CBC tomorrow * Hematology consult to evaluate thrombocytosis. May also need IV iron infusions. * Follow-up renal function following hydration. D/C NSAIDs. * Maintain PPI, mesalamine * Regular diet. * Following discharge, outpatient follow-up with Dr. Valverde to continue evaluation/management of abdominal pain, colitis, GERD. Copies To: Aide WRIGHT,Wily Coughlin; Abram WRIGHT,Shorty Francois Acknowledgment - Thank you for your consult request.
--- NOTE | 2017-05-30 19:49 | Cons- Hematology ---
General Information and HPI Consulting Request Date of Consult: 05/30/17 Requested By: Kirstie Nguyen MD Reason for Consult: leukocytosis, thrombocytosis, anemia, LORENZO Source of Information: patient, old records Exam Limitations: no limitations History of Present Illness: Ms. Islas is a 71-year-old female with history of uterine cancer s/p radical hysterectomy in 12/2015 and brachytherapy, HTN, GERD, and recent diagnosis of colitis who presented to the [facility] with anemia, thrombocytosis, and leukocytosis. She was seen by her primary care physician yesteday and had blood work done. She has been having fatigue and progressive dyspnea with exertion over the last few months. She has been having abdominal pain since her hysterectomy. She has not been able to eat much due to pain with eating. Pain has worsen over the last few months. She denies any chest pain. She denies any bleeding issues. She has not had any fever or chills. She does have some nausea. She denies any bruising. She denies any weight loss. She does note some right leg pain at times. Pain is cramping in nature and intermittent. Pain starts at her ankle and moves up. Due to her symptoms, she was seen by her PCP and had blood work done on 2017. WBC was noted to be 19,600 with hemoglobin of 7.5 with hematocrit of 23.7 %. Platelet count was elevated at 1,044,000. Her chemistry noted elevated creatinine as 2.5. She has been taking NSAID for abdominal pain. Due to the new changes in her blood work, she was sent to the hospital for further evaluation. On presentation, her WBC is 16,300. Her hemoglobin is 7.2 with hematocrit of 23.0%. MCV is 73.8. Her platelet count is 1,058,000. Creatinine did have a slight improvement at 2.1. She admitted for evaluation. She was given two units of pRBC. She feels well currently. She denies any symptoms except for leg pain. Of note, she underwent colonoscopy and EGD on 04/09/[address] Valverde. Colonoscopy noted nonspecific patchy colitis throughout the colon status post biopsies and spot tattoo injection of the distal areas of inflammation. EGD was relatively unremarkable. Biopsy demonstrated colitis. Allergies/Medications Allergies: Coded Allergies: amitriptyline (FLUSHING 05/30/17) methylprednisolone (FLUSHING 05/30/17) neomycin (FLUSHING 05/30/17) trazodone (FLUSHING 05/30/17) Home Med List: Acetaminophen (Tylenol Extra Strength) 500 MG TABLET 1 TAB PO TID PRN pain ( Reported) Esomeprazole Magnesium (Nexium) 20 MG CAPSULE.DR 1 CAP PO DAILY PRN GERD ( Reported) Fexofenadine HCl (Celina Allergy) 180 MG TABLET 1 TAB PO DAILY sesonal allergy (Reported) Gabapentin (Neurontin) 800 MG TABLET 1 TAB PO TID for sleep (Reported) Hydrochlorothiazide 25 MG TABLET 1 TAB PO DAILY HTN (Reported) Lubiprostone (Amitiza) 8 MCG CAPSULE 1 CAP PO BID PRN GERD (Reported) Mesalamine (Lialda) 1.2 GRAM TABLET.DR 2 TAB PO DAILY UC (Reported) Omeprazole 40 MG CAPSULE.DR 1 CAP PO DAILY GERD (Reported) Oxycodone HCl/Acetaminophen (Percocet 7.5-325 MG Tablet) 7.5 MG-325 MG TABLET 1 TAB PO 4 TIMES/DAY PAIN (Reported) Pyridoxine HCl (Vitamin B-6) 50 MG TABLET 4 TAB PO DAILY supplement (Reported ) Venlafaxine HCl (Effexor XR) 37.5 MG CAP.ER.24H 1 CAP PO DAILY hot/cold sweats (Reported) Current Medications: Current Medications Sig/Rita Start time Last Medication Dose Route Stop Time Status Admin Gabapentin 800 MG AT BEDTIME 05/30 2200 AC PO Mesalamine 2,400 MG DAILY 05/30 1901 UNVr PO Omeprazole 40 MG DAILY AC 05/31 0700 AC PO Oxycodone/ 2 TAB Q4P PRN 05/30 1600 AC 05/30 Acetaminophen PO 1614 Pyridoxine HCl 200 MG DAILY 05/31 1000 DC PO Pyridoxine HCl 200 MG DAILY 05/31 1000 AC PO Review of Systems Review of Systems Constitutional: Reports: malaise, weakness. Denies: chills, diaphoresis, fever, unexplained weight loss. Cardiovascular: Denies: chest pain, palpitations, peripheral edema, syncope. Respiratory: Reports: short of breath. Denies: cough, sputum production, wheezing. GI: Reports: abdominal pain, nausea. Denies: constipation, melena, bloody stool, changes in stool, vomiting. Genitourinary: Denies: dysuria, hematuria. Musculoskeletal: Reports: muscle pain (RLE). Skin: Reports: dryness. Denies: rash. Neurological/Psychological: Reports: anxiety. Denies: cognitive dysfunction, confusion, depressed, emotional problems. Hematologic/Endocrine: Denies: bruising, bleeding. Immunologic/Allergic: Denies: splenectomy, lymphadenopathy. 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 Home Services at Home: None Smoking Status: Never Smoked ETOH Use: denies use Illicit Drug Use: denies illicit drug use Exam & Diagnostic Data Vital Signs and I&O Vital Signs Date Time Temp Pulse Resp B/P B/P Pulse O2 O2 Flow FiO2 Mean Ox Delivery Rate 05/30 1412 98.4 95 20 142/74 100 Room Air 05/30 1330 98.6 79 18 119/60 98 Room Air 05/30 1315 98.3 83 16 116/56 99 Room Air 05/30 1112 97.4 76 20 111/55 97 Room Air 05/30 0924 97.8 93 15 111/67 94 Room Air Room Air Intake & Output 05/30 1600 05/30 0800 05/30 0000 Intake Total 830 Output Total Balance 830 Intake, Blood 350 Product Intake, Oral 480 Patient 68.039 kg Weight Weight Reported by Patient Measurement Method Physical Exam General Appearance: well developed/nourished, no apparent distress, alert, awake , comfortable, thin Head: atraumatic, normal appearance Eyes: Bilateral: PERRL, EOMI. 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 tested Skin: warm/dry Lymphatic: no anterior cervical earl Last 48 Hours of Lab Results: Laboratory Tests 05/30 05/30 05/30 1618 1051 1028 Chemistry Sodium (137 - 145 mmol/L) 140 Potassium (3.5 - 5.1 mmol/L) 4.7 Chloride (98 - 107 mmol/L) 105 Carbon Dioxide (22 - 30 mmol/L) 19 L Anion Gap (5 - 16) 15 BUN (7 - 17 mg/dL) 44 H Creatinine (0.5 - 1.0 mg/dL) 2.1 H Estimated GFR (>60 ml/min) 23 L BUN/Creatinine Ratio (7 - 25 %) 21.0 Calcium (8.4 - 10.2 mg/dL) 9.2 Magnesium (1.6 - 2.3 mg/dL) 2.0 Iron (37 - 170 ug/dL) 18 L Cancelled TIBC (265 - 497 ug/dL) 269 Cancelled Ferritin (11.1 - 264 ng/mL) 24.9 Cancelled Total Bilirubin (0.2 - 1.3 mg/dL) 0.6 Direct Bilirubin (< 0.4 mg/dL) 0.6 H AST (14 - 36 U/L) 15 ALT (9 - 52 U/L) 21 Alkaline Phosphatase (<127 U/L) 110 Lactate Dehydrogenase (313 - 618 U/L) 372 Troponin I (< 0.11 ng/ml) < 0.01 Total Protein (6.3 - 8.2 g/dL) 6.3 Albumin (3.5 - 5.0 g/dL) 3.2 L Vitamin B12 (239 - 931 pg/mL) > 1000 H Cancelled Folate (2.76 - 20.0 ng/mL) 7.9 Cancelled Hematology CBC w Diff MAN DIFF ORDERED WBC (4.8 - 10.8 /CUMM) 16.3 H RBC (4.20 - 5.40 /CUMM) 3.11 L Hgb (12.0 - 16.0 G/DL) 7.2 *L Hct (37 - 47 %) 23.0 L MCV (81.0 - 99.0 FL) 73.8 L MCH (27.0 - 31.0 PG) 23.1 L MCHC (33.0 - 37.0 G/DL) 31.4 L RDW (11.5 - 14.5 %) 18.2 H Plt Count (130 - 400 /CUMM) 1058 *H MPV (7.4 - 10.4 FL) 5.9 L Gran % (42.2 - 75.2 %) 75.9 H Lymphocytes % (20.5 - 51.1 %) 13.8 L Monocytes % (1.7 - 9.3 %) 5.6 Eosinophils % (0 - 5 %) 4.4 Basophils % (0.0 - 2.0 %) 0.3 Absolute Granulocytes (1.4 - 6.5 /CUMM) 12.4 H Absolute Lymphocytes (1.2 - 3.4 /CUMM) 2.2 Absolute Monocytes (0.10 - 0.60 /CUMM) 0.9 H Absolute Eosinophils (0.0 - 0.7 /CUMM) 0.7 Absolute Basophils (0.0 - 0.2 /CUMM) 0.1 Platelet Estimate (ADEQUATE) INCREASED Polychromasia 1+ Hypochromic-Microcytic 2+ Anisocytosis 1+ Microcytic Cells 1+ Urines Urine Osmolality (300 - 1000 MOSM/KG) 287 L Ur Random Creatinine (mg/dL) 22.8 Ur Random Sodium (30 - 90 mmol/L) 78 Ur Random Potassium (mmol/L) 15.5 Fraction Sodium Excret (<1% %) 5.1 H Assessment/Plan Assessment: Ms. Islas is a 71-year-old female with history of uterine cancer s/p radical hysterectomy in 12/2015 and brachytherapy, HTN, GERD, and recent diagnosis of colitis who presented to the [facility] with anemia, thrombocytosis, and leukocytosis. She has had progressive dyspnea with exertion. Blood work done by her PCP on 05/29/2017 demonstrated microcytic anemia, leukocytosis, thrombocytosis, LORENZO, and hyperkalemia. She presents today with hemoglobin of 7.2 and hematocrit of 23.0. MCV is 73.8. Platelet count is 1,058,000. WBC is 16,300. Differentials demonstated 75.9% granulocytes, 13.8% lymphocytes, 5.6% monocytes, 4.4% eosinophils, and 0.3% basophils. Her creatinine is 2.1. Her bilirubin is normal at 0.6. Serum iron is 18, TIBC is 269, and ferritin is 24.9. Total protein is 6.3 with albumin of 3.2. Vitamin B12 level is >1000. Folate is normal at 7.9 LDH is normal at 372. Her hematologic abnormalities may be a combination of multiple factors. She has what looks like iron deficiency anemia. Severe iron deficiency has been known to cause reactive leukocytosis and thrombocytosis. She has not been eating well recently. Her leukocytosis has a relatively normal differentials. Severe inflammatory disease such as her colitis may cause elevation in her WBC and platelet. CRP and ESR may be checked. She is getting pRBC at the moment. This will likely improve her iron store. She should have supplemental oral iron started 3 times a day. Other potential etiology would be a myeloproliferative neoplasm such as ET, CML, PV, and MF. If she fail to improve on her hematologic parameter, she may need bone marrow biopsy. Her LORENZO may be related to dehydration and NSAID usage. She should have a trial of fluid resuscitation. Recommendations: Leukocytosis with thrombocytosis: -montior for now, may be reactive -if persistent, send for JAK2 and BCR/ABL -consider bone marrow biopsy if worsens or persistent -consider cytoreduction with Hydrea if worsening Microcytic anemia: -likely iron deficiency -follow up CBC after transfusion of pRBC -start oral ferrous sulfate 3 times daily -may need parenteral iron LORENZO: -avoid nephrotoxic medication -gentle hydration RLE pain: -if worsen, obtain US doppler for DVT evalaution Problem List: 1. Anemia 2. Thrombocytosis 3. LORENZO (acute kidney injury) 4. Leukocytosis 5. Uterine cancer Other Findings/Comments: Please call [phone] with any questions or concerns Consult Acknowledgment - Thank you for your consult request.
[2017-05-30 21:38] LABS: ABSOLUTE BASOPHIL COUNT 0.1 /CUMM (0.0-0.2); ABSOLUTE EOSINOPHIL COUNT 0.5 /CUMM (0.0-0.7)
[2017-05-30 21:41] LABS: ABSOLUTE GRANULOCYTE CT 9.3 /CUMM (1.4-6.5); ABSOLUTE LYMPH COUNT 2.8 /CUMM (1.2-3.4); ABSOLUTE MONOCYTE COUNT 1.1 /CUMM (0.10-0.60); EOSINOPHIL % 3.9 % (0-5); GRANULOCYTE % 67.4 % (42.2-75.2); MEAN CORPUSCULAR HGB 25.3 PG (27.0-31.0); MEAN CORPUSCULAR HGB CONC 31.8 G/DL (33.0-37.0); MEAN PLATELET VOLUME 5.9 FL (7.4-10.4); PLATELET COUNT 853 /CUMM (130-400); RBC DISTRIBUTION WIDTH 19.1 % (11.5-14.5); RED BLOOD CELL CT 3.86 /CUMM (4.20-5.40); WHITE BLOOD CELL COUNT 13.8 /CUMM (4.8-10.8)
[2017-05-30 21:43] LABS: HEMATOCRIT 30.7 % (37-47); MEAN CORPUSCULAR VOLUME 79.4 FL (81.0-99.0)
[2017-05-30 23:28] VITALS: BP 124/59
--- NOTE | 2017-05-31 06:57 | PN- Hematology ---
Subjective Subjective: She is feeling well. She has a new rash in her knuckles. She has no new pain. Review of Systems Constitutional: Denies: chills, fever. Cardiovascular: Denies: chest pain. Gastrointestinal: Denies: abdominal pain. Skin: Reports: rash. Hematologic/Endocrine: Denies: bruising, bleeding. All Other Systems: Reviewed and Negative Objective Vital Signs and I&Os Vital Signs Date Time Temp Pulse Resp B/P B/P Pulse O2 O2 Flow FiO2 Mean Ox Delivery Rate 05/31 2327 97.7 80 18 124/59 96 Room Air 05/30 1412 98.4 95 20 142/74 100 Room Air 05/30 1330 98.6 79 18 119/60 98 Room Air 05/30 1315 98.3 83 16 116/56 99 Room Air 05/30 1112 97.4 76 20 111/55 97 Room Air 05/30 0924 97.8 93 15 111/67 94 Room Air Room Air Intake & Output 05/31 0800 05/31 0000 05/30 1600 05/30 0800 05/30 0000 05/29 1600 Intake Total 480 250 830 Output Total Balance 480 250 830 Intake, Blood 350 Product Intake, IV 0 10 Intake, Oral 480 240 480 Number 0 0 Bowel Movements Patient 68.039 kg Weight Weight Reported by Patient Measurement Method Physical Exam: General Appearance: well developed/nourished, no apparent distress, alert, awake , comfortable, thin Head: atraumatic, normal appearance Ears, Nose, Throat: normal pharynx, tonsillar exudate Respiratory: normal breath sounds, chest non-tender, no respiratory distress, quiet respiration Cardiovascular: regular rate/rhythm, normal peripheral pulses Gastrointestinal: normal bowel sounds, soft, tenderness (LUQ) Back: normal inspection Extremities: dryness in skin, RLE is non tender, no LE edema, fingers with mild erythema Neurologic/Psych: no motor/sensory deficits, awake, alert, oriented x 3, normal mood/affect, cloth mender II-XII nml as tested Skin: warm/dry, rash in knuckles Current Medications: Current Medications Sig/Rita Start time Last Medication Dose Route Stop Time Status Admin Calcium Carbonate 500 MG ONCE ONE 05/30 2014 DC 05/30 PO 05/30 Ferrous Sulfate 325 MG TID 05/31 0242 AC PO Gabapentin 800 MG AT BEDTIME 05/30 2199 AC 05/30 PO 2046 Mesalamine 1,200 MG BID 05/30 2199 AC 05/30 PO 2134 Omeprazole 40 MG DAILY AC 05/31 0700 AC 05/31 PO 0542 Oxycodone/ 2 TAB Q4P PRN 05/30 1600 AC 05/31 Acetaminophen PO 0306 Pyridoxine HCl 200 MG DAILY 05/31 1000 DC PO Pyridoxine HCl 200 MG DAILY 05/31 1000 AC PO Results Last 24 Hours of Lab Results: Laboratory Tests 05/30 05/30 2120 1618 Hematology CBC w Diff NO MAN DIFF REQ WBC (4.8 - 10.8 /CUMM) 13.8 H RBC (4.20 - 5.40 /CUMM) 3.86 L Hgb (12.0 - 16.0 G/DL) 9.8 L Hct (37 - 47 %) 30.7 L MCV (81.0 - 99.0 FL) 79.4 L MCH (27.0 - 31.0 PG) 25.3 L MCHC (33.0 - 37.0 G/DL) 31.8 L RDW (11.5 - 14.5 %) 19.1 H Plt Count (130 - 400 /CUMM) 853 H MPV (7.4 - 10.4 FL) 5.9 L Gran % (42.2 - 75.2 %) 67.4 Lymphocytes % (20.5 - 51.1 %) 20.0 L Monocytes % (1.7 - 9.3 %) 7.7 Eosinophils % (0 - 5 %) 3.9 Basophils % (0.0 - 2.0 %) 1.0 Absolute Granulocytes (1.4 - 6.5 /CUMM) 9.3 H Absolute Lymphocytes (1.2 - 3.4 /CUMM) 2.8 Absolute Monocytes (0.10 - 0.60 /CUMM) 1.1 H Absolute Eosinophils (0.0 - 0.7 /CUMM) 0.5 Absolute Basophils (0.0 - 0.2 /CUMM) 0.1 Urines Urine Osmolality (300 - 1000 MOSM/KG) 287 L Ur Random Creatinine (mg/dL) 22.8 Ur Random Sodium (30 - 90 mmol/L) 78 Ur Random Potassium (mmol/L) 15.5 Fraction Sodium Excret (<1% %) 5.1 H 05/30 05/30 1051 1028 Chemistry Sodium (137 - 145 mmol/L) 140 Potassium (3.5 - 5.1 mmol/L) 4.7 Chloride (98 - 107 mmol/L) 105 Carbon Dioxide (22 - 30 mmol/L) 19 L Anion Gap (5 - 16) 15 BUN (7 - 17 mg/dL) 44 H Creatinine (0.5 - 1.0 mg/dL) 2.1 H Estimated GFR (>60 ml/min) 23 L BUN/Creatinine Ratio (7 - 25 %) 21.0 Calcium (8.4 - 10.2 mg/dL) 9.2 Magnesium (1.6 - 2.3 mg/dL) 2.0 Iron (37 - 170 ug/dL) 18 L Cancelled TIBC (265 - 497 ug/dL) 269 Cancelled Ferritin (11.1 - 264 ng/mL) 24.9 Cancelled Total Bilirubin (0.2 - 1.3 mg/dL) 0.6 Direct Bilirubin (< 0.4 mg/dL) 0.6 H AST (14 - 36 U/L) 15 ALT (9 - 52 U/L) 21 Alkaline Phosphatase (<127 U/L) 110 Lactate Dehydrogenase (313 - 618 U/L) 372 Troponin I (< 0.11 ng/ml) < 0.01 Total Protein (6.3 - 8.2 g/dL) 6.3 Albumin (3.5 - 5.0 g/dL) 3.2 L Vitamin B12 (239 - 931 pg/mL) > 1000 H Cancelled Folate (2.76 - 20.0 ng/mL) 7.9 Cancelled Hematology CBC w Diff MAN DIFF ORDERED WBC (4.8 - 10.8 /CUMM) 16.3 H RBC (4.20 - 5.40 /CUMM) 3.11 L Hgb (12.0 - 16.0 G/DL) 7.2 *L Hct (37 - 47 %) 23.0 L MCV (81.0 - 99.0 FL) 73.8 L MCH (27.0 - 31.0 PG) 23.1 L MCHC (33.0 - 37.0 G/DL) 31.4 L RDW (11.5 - 14.5 %) 18.2 H Plt Count (130 - 400 /CUMM) 1058 *H MPV (7.4 - 10.4 FL) 5.9 L Gran % (42.2 - 75.2 %) 75.9 H Lymphocytes % (20.5 - 51.1 %) 13.8 L Monocytes % (1.7 - 9.3 %) 5.6 Eosinophils % (0 - 5 %) 4.4 Basophils % (0.0 - 2.0 %) 0.3 Absolute Granulocytes (1.4 - 6.5 /CUMM) 12.4 H Absolute Lymphocytes (1.2 - 3.4 /CUMM) 2.2 Absolute Monocytes (0.10 - 0.60 /CUMM) 0.9 H Absolute Eosinophils (0.0 - 0.7 /CUMM) 0.7 Absolute Basophils (0.0 - 0.2 /CUMM) 0.1 Platelet Estimate (ADEQUATE) INCREASED Polychromasia 1+ Hypochromic-Microcytic 2+ Anisocytosis 1+ Microcytic Cells 1+ Assessment/Plan Hematology Assessment/Recommendations: Ms. Islas is a 71-year-old female with history of uterine cancer s/p radical hysterectomy in 12/2015 and brachytherapy, HTN, GERD, and recent diagnosis of colitis who presented to the [facility] with anemia, thrombocytosis, and leukocytosis. She has had progressive dyspnea with exertion. Blood work done by her PCP on 05/29/2017 demonstrated microcytic anemia, leukocytosis, thrombocytosis, LORENZO, and hyperkalemia. On presentation, she was noted to have hemoglobin of 7.2 and hematocrit of 23.0. MCV is 73.8. Platelet count is 1,058 ,000. WBC is 16,300. Differentials demonstated 75.9% granulocytes, 13.8% lymphocytes, 5.6% monocytes, 4.4% eosinophils, and 0.3% basophils. Her creatinine is 2.1. Her bilirubin is normal at 0.6. Serum iron is 18, TIBC is 269, and ferritin is 24.9. Total protein is 6.3 with albumin of 3.2. Vitamin B12 level is >1000. Folate is normal at 7.9 LDH is normal at 372. She has received 2 units of pRBC. She is improving with her fatigue. Blood work demonstrated improvement in her WBC, Hgb, Hct, and platelet. This morning her WBC continues to improve. Her hemoglobin is stable. Her platelet continues to improve. This would suggest that her symptoms may be iron deficiency related. She may be monitored for now. She will continue with her oral iron. Leukocytosis with thrombocytosis: -may be reactive with colitis and ALLEY -if persistent, will send JAK2 and BCR/ABL -consider bone marrow biopsy if worsens or persistent -consider cytoreduction with Hydrea if worsening thrombocytosis Microcytic anemia: -likely iron deficiency -continue oral ferrous sulfate 3 times daily -may need parenteral iron as outpatient LORENZO: -avoid nephrotoxic medication -increase hydration RLE pain: -if worsen, obtain US doppler for DVT evalaution Please call [phone] with any questions or concerns. Problem List: 1. Uterine cancer 2. Leukocytosis 3. LORENZO (acute kidney injury) 4. Anemia 5. Thrombocytosis
--- NOTE | 2017-05-31 07:34 | PN- Housestaff ---
See Addendum Subjective Follow-up For: dizziness, shortness breath, and fatigue Tele-Events Since Last Visit: NA Subjective: Afebrile, mildly hypotensive, saturating well on room air. The patient denies active abdominal pain, nausea, or diarrhea. No overnight event was reported and she denies any other current active complaints. Review of Systems Constitutional: Reports: no symptoms, see HPI. Objective Last 24 Hrs of Vital Signs/I&O Vital Signs Date Time Temp Pulse Resp B/P B/P Pulse O2 O2 Flow FiO2 Mean Ox Delivery Rate 05/31 0759 98.2 64 20 94/50 100 Room Air 05/30 2328 97.7 80 18 124/59 96 Room Air 05/30 1412 98.4 95 20 142/74 100 Room Air 05/30 1330 98.6 79 18 119/60 98 Room Air 05/30 1315 98.3 83 16 116/56 99 Room Air Intake & Output 05/31 1600 05/31 0800 05/31 0000 Intake Total 480 250 Output Total Balance 480 250 Intake, IV 0 10 Intake, Oral 480 240 Number 0 0 Bowel Movements Physical Exam General Appearance: Alert, Oriented X3, Cooperative, No Acute Distress Skin: No Rashes HEENT: Atraumatic, PERRLA, EOMI, Mucous Membr. moist/pink Neck: No JVD Cardiovascular: Regular Rate, Normal S1, Normal S2, No Murmurs Lungs: Clear to Auscultation, Normal Air Movement Abdomen: Soft, No Tenderness Neurological: Normal Speech Extremities: No Clubbing, No Cyanosis, No Edema Current Medications: Current Medications Sig/Rita Start time Last Medication Dose Route Stop Time Status Admin Calcium Carbonate 500 MG ONCE ONE 05/30 2014 DC 05/30 PO 05/30 Ferrous Sulfate 325 MG TID 05/31 0242 AC 05/31 PO 09 Gabapentin 800 MG AT BEDTIME 05/30 2199 AC 05/30 PO 2045 Mesalamine 1,200 MG BID 05/30 2199 AC 05/31 PO 09 Omeprazole 40 MG DAILY AC 05/31 0700 AC 05/31 PO 0542 Oxycodone/ 2 TAB Q4P PRN 05/30 1600 AC 05/31 Acetaminophen PO 09 Pyridoxine HCl 200 MG DAILY 05/31 1000 DC PO Pyridoxine HCl 200 MG DAILY 05/31 1000 AC 05/31 PO 0906 Last 24 Hrs of Lab/Tom Results Last 24 Hrs of Labs/Mics: Laboratory Tests 05/31/17 0703: Anion Gap 13, Estimated GFR 26 L, BUN/Creatinine Ratio 16.8, CBC w Diff NO MAN DIFF REQ, RBC 3.84 L, MCV 78.8 L, MCH 25.6 L, MCHC 32.5 L, RDW 19.2 H, MPV 5.9 L, Gran % 72.0, Lymphocytes % 15.4 L, Monocytes % 8.3, Eosinophils % 3.8, Basophils % 0.5, Absolute Granulocytes 9.5 H, Absolute Lymphocytes 2.0, Absolute Monocytes 1.1 H, Absolute Eosinophils 0.5, Absolute Basophils 0.1 05/30/170: CBC w Diff NO MAN DIFF REQ, RBC 3.86 L, MCV 79.4 L, MCH 25.3 L, MCHC 31.8 L, RDW 19.1 H, MPV 5.9 L, Gran % 67.4, Lymphocytes % 20.0 L, Monocytes % 7.7, Eosinophils % 3.9, Basophils % 1.0, Absolute Granulocytes 9.3 H, Absolute Lymphocytes 2.8, Absolute Monocytes 1.1 H, Absolute Eosinophils 0.5, Absolute Basophils 0.1 05/30/17 1618: Urine Osmolality 287 L, Ur Random Creatinine 22.8, Ur Random Sodium 78, Ur Random Potassium 15.5, Fraction Sodium Excret 5.1 H Assessment/Plan Assessment: 71-year-old female with PMH of GERD, hypertension, chronic postprandial abdominal pain that started after hysterectomy 2016. The patient was seen by GI as an outpatient and she was given the diagnosis of ulcerative colitis and started and mesalamine that was started 2 days prior to admission. She visited PCP for dizziness, shortness breath and generalize fatigue and she was sent to the hospital because of abnormal labs finding. Assessment #Postprandial Abdominal pain Recent colonoscopy that showed patchy colitis, possibly secondary to ulcerative colitis for which she is on mesalamine 2.4 gm daily. Postprandial abdominal pain possibly secondary to chronic mesenteric ischemia, currently we cannot do CT abdomen and pelvis with contrast because of LORENZO, GI we'll continue follow as an outpatient for further workup. Today she tolerate food without abdominal pain. She is on omeprazole for GERD * Continue regular diet * We will continue mesalamine 2.4 daily * We will continue omeprazole 40 mg daily * We will consider outpatient CT abdomen and pelvis with contrast to assess the integrity of mesentery blood supply. * GI recommendation highly appreciated #Microcytic anemia without identifiable source of bleeding, leukocytosis, and thrombocytosis Status post 2 packed RBCs transfusion yesterday, H&H this morning is 9.8 &9.8. Based on blood work up she was diagnosed with iron deficiency anemia. No source of bleeding or signs of hemolysis. Hem/oncologist recommended trending thrombocytosis and leukocytosis after iron supplement and blood transfusion. Both platelet and WBCs improved. * We will continue iron supplement 3 times a day * if persistent thrombocytosis, will send JAK2 and BCR/ABL as per hem/onc recommendations * CBCs daily #LORENZO Most likely multifactorial secondary to anemia, hydrochlorothiazide, and diclofenac. Creatinine slightly improved. * We will continue holding all nephrotoxic * Currently she is tolerating oral intake, will DC fluid * We will follow renal function daily * If no improvement we consider renal ultrasound Full code Regular diet DVT prophylaxis with Alps only given a possibility of bleeding Problem List: 1. Leukocytosis 2. LORENZO (acute kidney injury) 3. Anemia 4. Thrombocytosis Pain Ratin Pain Location: Upper abdomen Pain Goal: Remain pain free Pain Plan: Percocet Tomorrow's Labs & Rationales: CBCs to follow WBCs, RBCs, platelets BEP to follow renal function test
[2017-05-31 07:59] VITALS: BP 94/50
[2017-05-31 08:25] LABS: ABSOLUTE BASOPHIL COUNT 0.1 /CUMM (0.0-0.2); ABSOLUTE EOSINOPHIL COUNT 0.5 /CUMM (0.0-0.7); ABSOLUTE GRANULOCYTE CT 9.5 /CUMM (1.4-6.5); ABSOLUTE MONOCYTE COUNT 1.1 /CUMM (0.10-0.60); BASOPHIL % 0.5 % (0.0-2.0); EOSINOPHIL % 3.8 % (0-5); HEMATOCRIT 30.3 % (37-47); MEAN CORPUSCULAR HGB 25.6 PG (27.0-31.0); MEAN CORPUSCULAR HGB CONC 32.5 G/DL (33.0-37.0); MEAN CORPUSCULAR VOLUME 78.8 FL (81.0-99.0); MEAN PLATELET VOLUME 5.9 FL (7.4-10.4); PLATELET COUNT 797 /CUMM (130-400); RBC DISTRIBUTION WIDTH 19.2 % (11.5-14.5); RED BLOOD CELL CT 3.84 /CUMM (4.20-5.40); WHITE BLOOD CELL COUNT 13.2 /CUMM (4.8-10.8)
[2017-05-31 14:52] VITALS: BP 112/68
[2017-05-31 22:04] VITALS: BP 125/77
[2017-06-01 06:01] VITALS: BP 128/72
--- NOTE | 2017-06-01 06:13 | PN- Housestaff ---
Subjective Follow-up For: dizziness, shortness breath, and fatigue Subjective: Afebrile, hemodynamically stable, saturating well on room air. The patient denies active abdominal pain, nausea, or diarrhea. Yesterday she complained of abdominal pain after dinner. Review of Systems Constitutional: Reports: no symptoms, see HPI. Objective Last 24 Hrs of Vital Signs/I&O Vital Signs Date Time Temp Pulse Resp B/P B/P Pulse O2 O2 Flow FiO2 Mean Ox Delivery Rate 06/01 0601 97.7 87 20 128/72 92 05/31 2204 98.5 80 20 125/77 97 Room Air 05/31 1452 98.2 84 19 112/68 93 Room Air 05/31 0759 98.2 64 20 94/50 100 Room Air Intake & Output 06/01 0800 06/01 0000 05/31 1600 Intake Total 680 800 Output Total Balance 680 800 Intake, Oral 680 800 Physical Exam General Appearance: Alert, Oriented X3, Cooperative, No Acute Distress Skin: No Rashes HEENT: Atraumatic, PERRLA, EOMI, Mucous Membr. moist/pink Neck: No JVD Cardiovascular: Regular Rate, Normal S1, Normal S2, No Murmurs Lungs: Clear to Auscultation, Normal Air Movement Abdomen: Normal Bowel Sounds, Soft, No Tenderness Neurological: Normal Speech Extremities: No Clubbing, No Cyanosis, No Edema Current Medications: Current Medications Sig/Rita Start time Last Medication Dose Route Stop Time Status Admin Ferrous Sulfate 325 MG TID 05/31 0242 AC 05/31 PO 2100 Gabapentin 800 MG AT BEDTIME 05/30 220 AC 05/31 PO 2100 Mesalamine 1,200 MG BID 05/30 2200 AC 05/31 PO 2100 Omeprazole 40 MG DAILY AC 05/31 0700 AC 06/01 PO 0707 Oxycodone/ 2 TAB Q4P PRN 05/30 1600 AC 06/01 Acetaminophen PO 0709 Pyridoxine HCl 200 MG DAILY 05/31 1000 DC PO Pyridoxine HCl 200 MG DAILY 05/31 1000 AC 05/31 PO 0906 Sodium Chloride 1,000 ML Q20H 05/31 1730 AC 05/31 IV 1738 Last 24 Hrs of Lab/Tom Results Last 24 Hrs of Labs/Mics: Laboratory Tests 06/01/17 0730: Sodium Pending, Potassium Pending, Chloride Pending, Carbon Dioxide Pending, Anion Gap Pending, BUN Pending, Creatinine Pending, BUN/Creatinine Ratio Pending , CBC w Diff Pending, WBC Pending, RBC Pending, Hgb Pending, Hct Pending, MCV Pending, MCH Pending, MCHC Pending, RDW Pending, Plt Count Pending, MPV Pending Assessment/Plan Assessment: 71-year-old female with PMH of GERD, hypertension, chronic postprandial abdominal pain that started after hysterectomy 2016. The patient was seen by GI as an outpatient and she was given the diagnosis of ulcerative colitis and started and mesalamine that was started 2 days prior to admission. She visited PCP for dizziness, shortness breath and generalize fatigue and she was sent to the hospital because of abnormal labs finding. Assessment #Postprandial Abdominal pain Recent colonoscopy that showed patchy colitis, possibly secondary to ulcerative colitis for which she is on mesalamine 2.4 gm daily. Postprandial abdominal pain possibly secondary to chronic mesenteric ischemia, currently we cannot do CT abdomen and pelvis with contrast because of LORENZO, GI we'll continue follow as an outpatient for further workup. Yesterday she complained of abdominal pain after dinner. She is on omeprazole for GERD * Continue regular diet as tolerated * We will continue mesalamine 2.4 daily * We will continue omeprazole 40 mg daily * We will consider outpatient CT abdomen and pelvis with contrast to assess the integrity of mesentery blood supply. * GI recommendation highly appreciated #Microcytic anemia without identifiable source of bleeding, leukocytosis, and thrombocytosis Status post 2 packed RBCs transfusion on admission, she was started on iron supplements as per him. H&H this morning still pending. No source of bleeding or signs of hemolysis. Hem/oncologist recommended trending thrombocytosis and leukocytosis after iron supplement and blood transfusion. Both platelet and WBCs improved, today's lab still pending * Continue iron supplement 3 times a day * if persistent thrombocytosis, will send JAK2 and BCR/ABL as per hem/onc recommendations * CBCs daily #LORENZO Most likely multifactorial secondary to anemia, hydrochlorothiazide, and diclofenac. Creatinine slightly improved. * We will continue holding all nephrotoxic * She has one bag of IV normal saline running * Today's renal function is still pending * If no improvement we consider renal ultrasound Full code Regular diet DVT prophylaxis with Alps only given a possibility of bleeding Problem List: 1. Leukocytosis 2. LORENZO (acute kidney injury) 3. Anemia 4. Thrombocytosis Pain Ratin Pain Location: Epigastric Pain Goal: Remain pain free Pain Plan: See assessment and plan Tomorrow's Labs & Rationales: CBCT and BEP
[2017-06-01] MEDS ORDERED: FERROUS SULFAT325 M2 PO (07:50)
--- NOTE | 2017-06-01 07:56 | Patient Discharge Instructions ---
Discharge Instructions General Discharge Information You were seen/treated for: Abdominal pain possibly ulcerative colitis Thrombocytosis Leukocytosis Microcytic anemia most likely secondary to iron deficiency Special Instructions: Please follow-up with primary care doctor within 1 week Please follow-up with oncologist within 1 week Diet Continue normal diet: Yes Acute Coronary Syndrome Inclusion Criteria At DC or during hospital stay patient has or had the following: ACS DIAGNOSIS No Discharge Core Measures Meds if any: Prescribed or Continued at Discharge Meds if any: NOT Prescribed or Continued at Discharge Congestive Heart Failure Inclusion Criteria At DC or during hospital stay patient has or had the following: CHF DIAGNOSIS No Discharge Core Measures Meds if any: Prescribed or Continued at Discharge Meds if any: NOT Prescribed or Continued at Discharge Cerebrovascular accident Inclusion Criteria At DC or during hospital stay patient has or had the following: CVA/TIA Diagnosis No Discharge Core Measures Meds if any: Prescribed or Continued at Discharge Meds if any: NOT Prescribed or Continued at Discharge Venous thromboembolism Inclusion Criteria VTE Diagnosis No VTE Type NONE VTE Confirmed by (Test) NONE Discharge Core Measures - Per Current guidelines, there needs to be overlap - treatment for the first 5 days of Warfarin therapy. - If discharged on Warfarin prior to 5 days of - overlap therapy, the patient will need to be - assessed for post discharge needs including - *Post discharge parental anticoagulation - *Warfarin and/or parental anticoagulation education - *Follow up date to check INR post discharge At least 5 days overlap therapy as Inpatient No Meds if any: Prescribed or Continued at Discharge Note: Overlap Therapy is Warfarin and Anticoagulant Meds if any: NOT Prescribed or Continued at Discharge
[2017-06-01 09:03] LABS: ABSOLUTE BASOPHIL COUNT 0.1 /CUMM (0.0-0.2); ABSOLUTE EOSINOPHIL COUNT 0.5 /CUMM (0.0-0.7); ABSOLUTE GRANULOCYTE CT 10.5 /CUMM (1.4-6.5); ABSOLUTE LYMPH COUNT 2.7 /CUMM (1.2-3.4); ABSOLUTE MONOCYTE COUNT 1.3 /CUMM (0.10-0.60); BASOPHIL % 0.5 % (0.0-2.0); EOSINOPHIL % 3.3 % (0-5); GRANULOCYTE % 69.8 % (42.2-75.2); HEMATOCRIT 33.3 % (37-47); MEAN CORPUSCULAR HGB 25.6 PG (27.0-31.0); MEAN CORPUSCULAR HGB CONC 32.3 G/DL (33.0-37.0); MEAN CORPUSCULAR VOLUME 79.2 FL (81.0-99.0); MEAN PLATELET VOLUME 5.9 FL (7.4-10.4); PLATELET COUNT 817 /CUMM (130-400); RBC DISTRIBUTION WIDTH 19.5 % (11.5-14.5); RED BLOOD CELL CT 4.21 /CUMM (4.20-5.40); WHITE BLOOD CELL COUNT 15.1 /CUMM (4.8-10.8)
[2017-06-01 14:52] VITALS: BP 108/66
--- NOTE | 2017-06-02 09:37 | Discharge Summary ---
Visit Information Visit Dates Admission Date: 05/30/17 Discharge Date: 06/01/17 Hospital Course Allergies: Coded Allergies: amitriptyline (FLUSHING 05/30/17) methylprednisolone (FLUSHING 05/30/17) neomycin (FLUSHING 05/30/17) trazodone (FLUSHING 05/30/17) Discharge Instructions Medications at Discharge Discharge Medications: Stop taking the following medications: [QUINAPRIL] DAILY Diclofenac Sodium (Diclofenac Sodium) 50 MG TABLET.DR ORAL TWICE DAILY Gabapentin (Gabapentin) 100 MG CAPSULE ORAL NIGHTLY Hydrochlorothiazide (Hydrochlorothiazide) 25 MG TABLET ORAL DAILY Continue taking these medications: Oxycodone HCl/Acetaminophen (Percocet 7.5-325 MG Tablet) 7.5 MG-325 MG TABLET 1 Tablet ORAL 4 TIMES A DAY Comments: Last Taken: 07/12/16 Time: 200 PM Omeprazole (Omeprazole) 40 MG CAPSULE.DR 1 Capsule ORAL DAILY Comments: Last Taken:06/01/17 Time:7:07 AM Venlafaxine HCl (Effexor XR) 37.5 MG CAP.ER.24H 1 Capsule ORAL DAILY Comments: NOT GIVEN IN HOSPITAL Acetaminophen (Tylenol Extra Strength) 500 MG TABLET 1 Tablet ORAL THREE TIMES DAILY as needed for pain Comments: NOT GIVEN IN HOSPITAL Esomeprazole Magnesium (Nexium) 20 MG CAPSULE.DR 1 Capsule ORAL DAILY as needed for GERD Comments: NOT GIVEN IN HOSPITAL Lubiprostone (Amitiza) 8 MCG CAPSULE 1 Capsule ORAL TWICE DAILY as needed for GERD Comments: NOT GIVEN IN HOSPITAL Gabapentin (Neurontin) 800 MG TABLET 1 Tablet ORAL THREE TIMES DAILY Comments: Last Taken:05/31/17 Time:9:00 PM Pyridoxine HCl (Vitamin B-6) 50 MG TABLET 4 Tablet ORAL DAILY Comments: Last Taken:06/01/17 Time:9:23 AM Mesalamine (Lialda) 1.2 GRAM TABLET. 2 Tablet ORAL DAILY Qty = 30 Comments: Last Taken:06/01/17 Time:9:23 AM Fexofenadine HCl (Celina Allergy) 180 MG TABLET 1 Tablet ORAL DAILY Comments: NOT GIVEN IN HOSPITAL Start taking the following new medications: Ferrous Sulfate (Ferrous Sulfate) 325 MG (65 MG IRON) TABLET. 325 Milligram ORAL THREE TIMES DAILY Qty = 60 No Refills
== END 2017-06-01 16:20 | DRG 812 ==
LOC: ERH 09:18 → 2NB 12:16 → ERHI 12:16 → ENRESERV 13:10 → ENTRNSPT 13:42 → EDTRNSPT 13:45 → EDTRNSPTSTS 13:45 → 2NB 14:04 → CMPTRNSPT 14:13 → ENPENDDIS 06-01 12:51 → DELTRNSPT 06-01 15:37 → 2NB 06-01 16:20
PROVIDERS: Internal Medicine; Student in an Organized Health Care Education/Training Program
PROC: 30233N1 Transfusion of Nonautologous Red Blood Cells into Peripheral Vein, Percutaneous Approach (ICD-10-PCS; principal; 2017-05-30)
DX: D64.89 Other specified anemias (principal); N17.9 Acute kidney failure, unspecified; K51.90 Ulcerative colitis, unspecified, without complications; D50.8 Other iron deficiency anemias; E86.0 Dehydration; K43.2 Incisional hernia without obstruction or gangrene; D47.3 Essential (hemorrhagic) thrombocythemia; T39.395A Adverse effect of other nonsteroidal anti-inflammatory drugs [NSAID], initial encounter; K21.9 Gastro-esophageal reflux disease without esophagitis
CPT/HCPCS: 2NBSP; 84133; 84300; 36592; 71046; 82436; 82570; 86920; 87086; 93005; 93010; P9016

== ENCOUNTER 2017-06-10 12:04 | Emergency (ER) | payer OTHER, MEDICARE ==
[~2017-06-10] VITALS: Ht 154.9 cm; Wt 66.7 kg
[~2017-06-10 12:04] MED LIST changes: +ALLEGRA ALLERG180 M1 PO; +AMITIZA8 MC1 PO; +EFFEXOR XR37.5 M1 PO; +FERROUS SULFAT325 M2 PO; +HYDROCHLOROTHIA25 M1 PO; +LIALDA1.2 G1 PO; +NEURONTIN800 M2 PO; +NEXIUM20 M1 PO; +TYLENOL EXTRA500 M2 PO; +VITAMIN B-650 M2 PO
--- NOTE | 2017-06-10 13:00 | ED UPPER/LOWER EXTREMITY COMPL ---
History of Present Illness General Chief Complaint: Lower Extremity Problems Stated Complaint: SENT FOR BLOOD CLOT IN LEFT LEG ON ULTRASOUND Source: patient Exam Limitations: no limitations Vital Signs & Intake/Output Vital Signs & Intake/Output Vital Signs Date Time Temp Pulse Resp B/P B/P Pulse O2 O2 Flow FiO2 Mean Ox Delivery Rate 06/10 1510 98.1 80 18 120/74 97 Room Air 06/10 1229 97 06/10 1209 97.8 82 20 116/71 95 Room Air Allergies Coded Allergies: amitriptyline (FLUSHING 05/30/17) methylprednisolone (FLUSHING 05/30/17) neomycin (FLUSHING 05/30/17) trazodone (FLUSHING 05/30/17) Reconcile Medications Acetaminophen (Tylenol Extra Strength) 500 MG TABLET 1 TAB PO TID PRN pain ( Reported) Esomeprazole Magnesium (Nexium) 20 MG CAPSULE.DR 1 CAP PO DAILY PRN GERD ( Reported) Ferrous Sulfate 325 MG (65 MG IRON) TABLET.DR 325 MG PO TID anemia Fexofenadine HCl (Celina Allergy) 180 MG TABLET 1 TAB PO DAILY sesonal allergy (Reported) Gabapentin (Neurontin) 800 MG TABLET 1 TAB PO TID for sleep (Reported) Lubiprostone (Amitiza) 8 MCG CAPSULE 1 CAP PO BID PRN GERD (Reported) Mesalamine (Lialda) 1.2 GRAM TABLET.DR 2 TAB PO DAILY UC (Reported) Omeprazole 40 MG CAPSULE.DR 1 CAP PO DAILY GERD (Reported) Oxycodone HCl/Acetaminophen (Percocet 7.5-325 MG Tablet) 7.5 MG-325 MG TABLET 1 TAB PO 4 TIMES/DAY PAIN (Reported) Pyridoxine HCl (Vitamin B-6) 50 MG TABLET 4 TAB PO DAILY supplement (Reported ) Rivaroxaban (Xarelto) 15 MG TABLET 1 TAB PO BID DVT Venlafaxine HCl (Effexor XR) 37.5 MG CAP.ER.24H 1 CAP PO DAILY hot/cold sweats (Reported) Triage Note: SIB DR NOBLE FOR DVT IN LEFT LEG. RESULTS IN PT'S CHART. PT RECENTLY D/C HERE FOR GIB. PER DR NOBLE PT MAY NEED FILTER Triage Nurses Notes Reviewed? yes HPI: Patient presents for evaluation of a blood clot in the left leg. Patient states that she has been having bilateral leg pains for "a while". She was recently hospitalized (about 1 week ago) due to an anemia. She was having a follow-up appointment with her primary care doctor and described the leg pain to him. He then sent her for a Doppler study to rule out a DVT. The Doppler is positive for a blood clot. The patient denies any associated chest pain or dyspnea. She denies any prior history of blood clots. Past History Travel History Traveled to [place] past 21 day No Medical History Any Pertinent Medical History? 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 No Review of Systems Review of Systems Constitutional: Reports: no symptoms. EENTM: Reports: no symptoms. Respiratory: Reports: no symptoms. Cardiovascular: Reports: no symptoms. Gastrointestinal/Abdominal: Reports: no symptoms. Genitourinary: Reports: no symptoms. Musculoskeletal: Reports: see HPI. Skin: Reports: no symptoms. Neurological/Psychological: Reports: no symptoms. Hematologic/Endocrine: Reports: no symptoms. Immunological: Reports: no symptoms. All Other Systems: Reviewed and Negative Physical Exam Physical Exam General Appearance: SEE BELOW Comments: Gen.: Well-nourished, well-developed, no acute respiratory distress. Head: Normocephalic, atraumatic. Eyes: Normal inspection bilaterally Ears: Normal inspection bilaterally Nose: Normal inspection Throat/mouth : Moist mucosa Neck: Supple, full range of motion, no goiter Heart: Regular rate and rhythm Lungs: Quiet respirations Back: Normal range of motion Extremities: Left lower extremity: Mild tenderness of the medial left ankle with pitting edema of the ankle and foot. Normal dorsalis pedis and posterior tibials pulses. Right lower extremity: Nontender, no edema or other significant findings. Neurologic: Cranial nerves grossly intact, speech is clear Skin: warm and dry Psychiatric: Calm, cooperative, no apparent delusions or hallucinations Progress Differential Diagnosis: arterial insufficiency, cellulitis, compartment syndrome , contusion, sprain, dvt Plan of Care: Orders Procedure Date/time Status Add-on Test (ER Only) 06/10 1248 Active PROTHROMBIN TIME 06/10 1245 Complete COMPREHENSIVE METABOLIC PANEL 06/10 1244 Complete CBC WITHOUT DIFFERENTIAL 06/10 1244 Complete Laboratory Tests 06/10/17 1245: Anion Gap 17 H, Estimated GFR 34 L, BUN/Creatinine Ratio 13.3, Glucose 100 H, Calcium 9.1, Total Bilirubin 0.6, AST 16, ALT 25, Alkaline Phosphatase 94, Total Protein 7.0, Albumin 3.5, Globulin 3.5, Albumin/Globulin Ratio 1.0 L, PT 12.4, INR 1.14, CBC w Diff NO MAN DIFF REQ, RBC 3.93 L, MCV 78.4 L, MCH 25.3 L, MCHC 32.3 L, RDW 20.5 H, MPV 6.9 L, Gran % 81.2 H, Lymphocytes % 12.7 L, Monocytes % 4.4, Eosinophils % 1.6, Basophils % 0.1, Absolute Granulocytes 11.0 H, Absolute Lymphocytes 1.7, Absolute Monocytes 0.6, Absolute Eosinophils 0.2, Absolute Basophils 0 Comments: 06/10/2017 2:19:31 PM I have discussed this case with Dr. Noble who was concerned about anticoagulating her in the face of a recent GI bleed for which she was hospitalized. He feels that GI to clear anticoagulation and vascular consults should be obtained. 06/10/2017 2:40:18 PM I discussed this patient's case with Dr. Martines who will review the patient's chart and attempt to contact Dr. Valverde regarding the anticoagulation question. Departure Departure Disposition: HOME OR SELF CARE Condition: Stable Clinical Impression Primary Impression: DVT (deep venous thrombosis) Qualifiers: DVT location: lower extremity Affected thrombotic vein of extremity : tibial Chronicity: acute Laterality: left Qualified Code: I82.442 - Acute embolism and thrombosis of left tibial vein Referrals: Aide WRIGHT,Wily Coughlin (PCP/Family) Additional Instructions: XARALTO as prescribed. Follow-up with Dr. Noble next week. Return if any concerns or sudden worsening. Thank you for choosing the [facility] for your care. It was a pleasure to serve you today. Juan Carlos Bosch M.D. [facility] Departure Forms: Customer Survey General Discharge Information Prescriptions: Current Visit Scripts Rivaroxaban (Xarelto) 1 TAB PO BID #42 TAB
[2017-06-10 13:04] LABS: PT 12.4 SEC (9.4-12.5)
[2017-06-10 13:06] LABS: ABSOLUTE BASOPHIL COUNT 0 /CUMM (0.0-0.2); ABSOLUTE EOSINOPHIL COUNT 0.2 /CUMM (0.0-0.7); ABSOLUTE LYMPH COUNT 1.7 /CUMM (1.2-3.4); ABSOLUTE MONOCYTE COUNT 0.6 /CUMM (0.10-0.60); BASOPHIL % 0.1 % (0.0-2.0); EOSINOPHIL % 1.6 % (0-5); GRANULOCYTE % 81.2 % (42.2-75.2); HEMATOCRIT 30.8 % (37-47); MEAN CORPUSCULAR HGB 25.3 PG (27.0-31.0); MEAN CORPUSCULAR HGB CONC 32.3 G/DL (33.0-37.0); MEAN CORPUSCULAR VOLUME 78.4 FL (81.0-99.0); MEAN PLATELET VOLUME 6.9 FL (7.4-10.4); PLATELET COUNT 501 /CUMM (130-400); RBC DISTRIBUTION WIDTH 20.5 % (11.5-14.5); RED BLOOD CELL CT 3.93 /CUMM (4.20-5.40); WHITE BLOOD CELL COUNT 13.5 /CUMM (4.8-10.8)
[2017-06-10 15:10] VITALS: BP 120/74
[2017-06-10] MEDS ORDERED: XARELTO15 M1 PO (15:30)
== END 2017-06-10 16:01 ==
LOC: ERH 12:04
PROVIDERS: Emergency Medicine
DX: I82.402 Acute embolism and thrombosis of unspecified deep veins of left lower extremity (principal)